=== PATIENT | male | born 1940 | race Caucasian/White ===

== ENCOUNTER → 2024-01-16 16:29 | Outpatient (REF) | payer MEDICARE, SELFPAY | LOC: ANHLAB 16:29 | PROVIDERS: PCP Family Medicine; Visit Provider Plastic Surgery | DX: C44.311 Basal cell carcinoma of skin of nose (principal) | CPT/HCPCS: 88305 ==

== ENCOUNTER 2024-03-14 20:56 | Inpatient (IN) | payer MEDICARE, SELFPAY ==
--- NOTE | ~2024-03-14 | XR_ITS ---
EXAM: XR hip BI 2V w AP pelvis DATE: 03/14/2024 22:48 HISTORY: pain status post fall . COMPARISON: None available. FINDINGS: Aortic endograft. Surgical clips over the bilateral inguinal canals. Decreased mineralizat ion. No fracture or dislocation. No lytic or blastic lesion. Mild bilateral hip osteoarthritis. Mild scattered pelvic enthesopathy. No erosion or periosteal change. Soft tissues within normal limits. IMPRESSION: No acute osseous finding in the pelvis or bilateral hips. Reviewed, dictated and finalized at location K.
--- NOTE | ~2024-03-14 | XR_ITS ---
EXAM: XR knee RT 3V, XR knee LT 3V DATE: 03/14/2024 22:48 HISTORY: pain status post fall . COMPARISON: None available. FINDINGS: Decreased mineralization. No fracture or dislocation. No lytic or blastic lesion. Joint sp aces are maintained. No erosion or periosteal change. Atherosclerotic vascular calcifications. Bilate ral anterior soft tissue swelling. Visualized, irregular appearing left patellar tendon. IMPRESSION: No acute osseous finding in the left or right knees. Irregularity of the left patellar te ndon, correlate for clinical findings of patellar tendon injury. Reviewed, dictated and finalized at location K. IMPRESSION: No acute osseous finding in the left or right knees. Irregularity o f the left patellar tendon, correlate for clinical findings of patellar tendon injury.
--- NOTE | ~2024-03-14 | CT_ITS ---
EXAMINATION: CT brain wo con DATE: 03/14/2024 22:55 INDICATION: head injury . TECHNIQUE: Computed tomography (CT) of the head was performed without intravenous contrast. The mA wa s adjusted according to patient size. Iterative reconstruction technique was employed. The dose-lengt h product was 681.00 mGy-cm. COMPARISON: None. FINDINGS: No acute intracranial hemorrhage or extra-axial fluid collection. No hydrocephalus, mass, or herniation. No acute ischemic infarct. Unremarkable dural venous sinus attenuation. No acute osseous abnormality. Small right posterior scalp swelling/contusion near the vertex. Opacification of the right frontal, right anterior and middle ethmoid cells, and bilateral maxillary sinuses with surrounding sclerosis. Mucosal thickening and aerated secretions in the right sphenoid s inus. Bilateral mastoid fluid. Mild mucosal thickening in the right frontal and ethmoid sinuses. Mild atrophy and chronic white matter change. Atherosclerotic intracranial calcification. IMPRESSION: No acute intracranial process. Acute on chronic sinusitis. Reviewed, dictated and finalized at location K.
--- NOTE | ~2024-03-14 | XR_ITS ---
XR abdomen/kub 1V DATE: 03/17/2024 05:38 INDICATION: Fecal impaction TECHNIQUE: Portable supine AP views COMPARISON: 03/16/2024 KUB 08/18/2007 CT thorax FINDINGS: Numerous coarse amorphous calcifications overlying the right upper quadrant are associated with a right upper pole cyst demonstrated on 08/18/2007 CT thorax examination. Endovascular stent of the abdominal aorta and common iliac arteries. The psoas shadows are intact. No visceromegaly is evident. There is a prominent amount of fecal material within the colon. No bowel obstruction is detected. IMPRESSION: Prominent amount of fecal material within the colon; no bowel obstruction Aortobiiliac endovascular stent Prominent calcifications associated with an upper pole right renal cyst noted on 08/18/2007 CT thorax Reviewed, dictated and finalized at Location A. Reviewed, dictated and finalized at location A. IMPRESSION: Prominent amount of fecal material within the colon; no bowel obstr uction Aortobiiliac endovascular stent Prominent calcifications associated with an upper pole right renal cyst noted o n 08/18/2007 CT thorax
--- NOTE | ~2024-03-14 | XR_ITS ---
EXAMINATION: XR chest 1V Exam Date/Time: 03/14/2024 22:32 CDT HISTORY: cough Comparison: 08/04/2007. RESULT: Lines, tubes, and devices: Partially visualized aortic endograft. Lungs and pleura: Linear and subsegmental airspace opacities in the left lung base. Mild left costop hrenic angle blunting Cardiomediastinal silhouette: Stable. Other: No acute osseous or upper abdominal finding. IMPRESSION: Subsegmental and linear left basilar atelectasis/consolidation. Possible small left pleural effusion. Reviewed, dictated and finalized at location K.
--- NOTE | ~2024-03-14 | XR_ITS ---
EXAMINATION: XR chest 1V portable DATE: 03/19/2024 10:50 INDICATION: Fluid overload. TECHNIQUE: A single frontal view of the chest was obtained on 2 radiographs. COMPARISON: Chest single view 03/14/2024 FINDINGS: There is no pneumonia, pleural effusion, or pneumothorax. The heart size is normal. IMPRESSION: 1. No acute cardiopulmonary disease. Reviewed, dictated and finalized at location A.
--- NOTE | ~2024-03-14 | CT_ITS ---
EXAMINATION: CT cervical spine wo con DATE: 03/14/2024 22:55 INDICATION: neck pain s/p fall TECHNIQUE: Computed tomography (CT) of the cervical spine was performed without intravenous contrast. Automated exposure control and iterative reconstruction technique were employed. The dose-length pro duct was 681.00 mGy-cm. COMPARISON: None. FINDINGS: Vertebral Body Alignment: Trace anterolisthesis at C3-4 and C7-T1, likely on a degenerative basis. Craniocervical and atlantoaxial alignment: Moderate degenerative change. Alignment intact. Osseous structures/fracture: No evidence of a lytic or blastic process in the visualized spine. No e vidence of acute fracture and cervical spine. Mild anterior wedge deformity at T1 Cervical soft tissues: The paraspinal soft tissues planes are maintained. Emphysematous change in the lungs. Degenerative changes: Degenerative changes, without severe neural foraminal or central canal narrowin g. IMPRESSION: No acute fracture or traumatic malalignment in the cervical spine. Mild anterior wedge deformity at T1, likely chronic unless accompanied by acute pain/tenderness. Reviewed, dictated and finalized at location K.
--- NOTE | ~2024-03-14 | US_ITS ---
EXAMINATION: US renal BI DATE: 03/15/2024 16:52 INDICATION: Acute kidney injury. Urinary retention. TECHNIQUE: Multiple ultrasound grayscale images of the kidneys were obtained. COMPARISON: None. FINDINGS: The right kidney measures 9.3 x 6.1 x 4.9 cm. The left kidney measures 11.6 x 6.1 x 6.3 cm. The kidne ys demonstrate normal parenchymal echogenicity. There is a 2.2 cm cyst in left kidney. There is no hy dronephrosis. The bladder is decompressed by a Jackson catheter. IMPRESSION: 1. Normal kidney sizes. No hydronephrosis. Reviewed, dictated and finalized at location A.
--- NOTE | ~2024-03-14 | CT_ITS ---
EXAMINATION: CT pelvis wo con DATE: 03/14/2024 23:48 INDICATION: Hip pain, negative x-ray. TECHNIQUE: Computed tomography (CT) of the pelvis was performed without intravenous contrast. Automat ed exposure control and iterative reconstruction technique were employed. The dose-length product was 763.88 mGy-cm. COMPARISON: X-ray bilateral hip and pelvis, same date FINDINGS: Aortoiliac endograft. Atherosclerotic arterial calcifications. Diverticulosis. Focal narrow ing in the mid sigmoid with surrounding wall thickening, no significant surrounding inflammatory wilson ge. The rectum is dilated to 6.5 cm by formed stool, with adjacent colonic wall thickening. Masslike soft tissue density at the distal rectum/anus. Distended urinary bladder with mild wall thickening. P rostatomegaly with calcification. Severe degenerative disc disease in the lower lumbar spine with mod erate bilateral neural foraminal narrowing at L4-5 and L5-S1 and moderate central canal narrowing at L4-5. No acute fracture or dislocation. IMPRESSION: No acute osseous finding in the pelvis or bilateral hips. Focal narrowing and wall thickening in the mid sigmoid colon, no surrounding inflammatory change to s uggest active diverticulitis. Possible fecal impaction with adjacent wall thickening as can be seen with early stercoral colitis. Possible anorectal mass. Consider referral for endoscopy to evaluate the anorectal findings and the mid sigmoid narrowing. Reviewed, dictated and finalized at location K. IMPRESSION: No acute osseous finding in the pelvis or bilateral hips. Focal narrowing and wall thickening in the mid sigmoid colon, no surrounding in flammatory change to suggest active diverticulitis. Possible fecal impaction with adjacent wall thickening as can be seen with benjie y stercoral colitis. Possible anorectal mass. Consider referral for endoscopy to evaluate the anorectal findings and the mid sigmoid narrowing.
--- NOTE | ~2024-03-14 | XR_ITS ---
XR abdomen/kub 1V 03/16/2024 08:41 Indication: impaction Procedure: KUB Comparison: CT pelvis dated 03/14/2024 Findings: There is an endovascular stents in the aorta and iliac arteries. There are coarse amorphous calcifications of the right upper abdomen, of uncertain etiology. Nonobstructive bowel gas pattern. Moderate colonic fecal loading. Impression: 1: Nonobstructive bowel gas pattern with moderate colonic fecal loading. Reviewed, dictated and finalized at location B. Impression: 1: Nonobstructive bowel gas pattern with moderate colonic fecal loading.
--- NOTE | ~2024-03-14 | XR_ITS ---
EXAM: XR elbow LT min 3V DATE: 03/14/2024 22:48 HISTORY: pain . COMPARISON: None available. FINDINGS: Normal mineralization. No fracture or dislocation. No lytic or blastic lesion. Mild degene rative change at the elbow joint. Epicondylar enthesopathy. No erosion or periosteal change. Anterior displacement of the anterior fat pad. IMPRESSION: Small elbow joint effusion which can occur with occult radial head fractures in a patient of this age. Reviewed, dictated and finalized at location K.
[2024-03-14 20:56] VITALS: BP 111/71; PULSE 86; RESP 20; TEMP 36.2; O2SAT 100
[2024-03-14 21:13] VITALS: BP 111/71; PULSE 87; RESP 20; TEMP 36.2; O2SAT 100
--- NOTE | 2024-03-14 21:15 | ECG_ITS ---
[facility] [address] Test Date: 2024-03-14 Pat Name: John Gaona Department: Room: Gender: M Plc Engineer: Jeremiah : 1940 Requested By: Demetrio Lester Order Number: [id number] Joelle MD: Carlos Alberto Briggs D.O. Measurements Intervals [place] Rate: 83 P: 89 PA: 188 QRS: -67 QRSD: 117 T: 52 QT: 391 QTc: 461 Interpretive Statements SINUS RHYTHM RIGHT BUNDLE BRANCH BLOCK LEFT ANTERIOR FASCICULAR BLOCK BASELINE ARTIFACT- I, II, III, AVR, AVL, V1-V2 ABNORMAL ECG No previous ECG available for comparison Electronically Signed On 03-15-2024 09:25:29 CDT by Carlos Alberto Briggs D.O.
[2024-03-14 22:31] LABS: Basophils Percent Auto 0.3 % (0.2-1.2); Eosinophils Percent Auto 0.1 % (0-4.4); Hematocrit 29.2 % (42.0-52.0); Hemoglobin 10.3 g/dL (14.0-18.0); Immature Granulocyte Absolute 0.06 K/mm3 (0.00-0.031); Immature Granulocyte Percent A 0.6 % (0-0.5); Lymphocytes Absolute Auto 1.23 K/mm3 (0.9-3.2); Lymphocytes Percent Auto 12.7 % (18.3-44.2); Mean Corpuscular HGB Conc 35.3 g/dl (32-36); Mean Corpuscular Hemoglobin 32.6 pg (26-34); Mean Corpuscular Volume 92.4 fl (80-100); Monocytes Absolute Auto 0.8 K/mm3 (0.1-0.6); Monocytes Percent Auto 8.2 % (2.6-8.5); Neutrophils Absolute Auto 7.5 K/mm3 (1.3-6.7); Neutrophils Percent Auto 78.1 % (45.5-73.1); Platelet Count Result 253 k/mm3 (150-375); Red Blood Count 3.16 M/mm3 (4.6-6.20); Red Cell Distribution Width 13.1 % (11.5-14.5); White Blood Count 9.7 K/mm3 (4.5-10.0)
[2024-03-14 22:41] LABS: Lactic Acid Reflex 1.6 mmol/L (0.7-2.0)
[2024-03-14 22:42] LABS: Prothrombin Time 13.6 Seconds (11.1-14.7)
[2024-03-14 22:43] LABS: Partial Thromboplastin Time 32.4 Seconds (22.3-36.8)
[2024-03-14 22:45] LABS: Alanine Aminotransferase 79 U/L (6-50); Alkaline Phosphatase 60 U/L (38-126); Aspartate Amino Transferase 270 U/L (17-59); Bilirubin,Total 0.7 mg/dL (0.2-1.3); Blood Urea Nitrogen 67 mg/dL (9-20); Calcium 8.9 mg/dL (8.4-10.2); Carbon Dioxide > 40 mmol/L (22-30); Chloride 79 mmol/L (98-107); Estimated CRCL calculation 39 ml/min; Estimated Glomerular Filt Rate 49; Glucose 168 mg/dL (65-110); Sodium 126 mmol/L (137-145)
[2024-03-14 22:49] LABS: Potassium 2.6 mmol/L (3.4-5.0)
[2024-03-14 23:10] VITALS: BP 116/78; PULSE 75; RESP 18; O2SAT 100
[2024-03-14] MEDS: KCL 20 MEQ/SW 100 ML 100 ML 50 MEQ IVPB (23:25)
[2024-03-14] MEDS: SODIUM CHLORIDE 0.9% IV 500 ML 999 ML (23:25)
--- NOTE | 2024-03-14 23:49 | ED.GENADULT ---
HPI - General Adult General Chief complaint: Fall Stated complaint: BILATERAL HIP PAIN, NECK PAIN S/P FALL Time Seen by Provider: 03/14/24 21:02 History of Present Illness HPI narrative: patient is a 83-year-old gentleman who presents emergency department with chief complaint of bilateral hip pain patient had a ground level fall after tripping over his cane. Patient reports that he was unable to get up afterwards and bear weight patient reports no loss of consciousness reports that he feels very weak patient reports that he did hit his head and has had recent falls Related Data Home Medications Medication Instructions Recorded Confirmed aspirin 81 mg tablet,delayed 81 mg PO DAILY 05/02/23 01/16/24 release phenylephrine HCl 1 % nasal spray 1 spray intranasal Q6H PRN 05/02/23 01/16/24 (Zaki-Synephrine (phenylephrine)) Allergies Allergy/AdvReac Type Severity Reaction Status Date / Time No Known Allergies Allergy Verified 01/16/24 16:05 Review of Systems Review of Systems: A 10 system review of systems was completed on the patient and is negative except for what is stated in the HPI. Nursing and ancillary documentation was reviewed. [facility] Past Medical History Medical History Abdominal aortic aneurysm BMI 35.0-35.9,adult BMI 36.0-36.9,adult BPH (benign prostatic hyperplasia) Changing skin lesion COPD (chronic obstructive pulmonary disease) Diabetes type 2, controlled Diabetes type 2, uncontrolled Edema Hernia Hypertension Hyponatremia Osteoarthritis PVD (peripheral vascular disease) Surgical History Surgical History H/O ventral hernia repair S/P AAA repair Stented coronary artery Family History Family History Father Heart disease Diabetes mellitus Mother Dementia Sibling No problems noted. Social History Social History Smoking packs per day: 1.5 Smoking cigarettes per day: 30.0 Years smoked: 55 Smoking pack-years: 82.50 Smoking status: Current every day smoker Tobacco type: cigarettes Second hand tobacco smoke exposure: No Alcohol intake: current Substance use: never Substance use type: does not use Do You Feel Safe in your Home?: Yes Lack of Transportation: No Lack of Food: Never True Current Housing: I Have Housing Concerned About Future Housing: No Difficulty Paying Gas/Electric Bills: No Difficulty Paying for Meds: No Currently Unemployed: No Education: Bachelor's Degree Difficulty w/ Childcare or Family Care: No Living arrangements: alone Occupation/Education: retired 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 Gender identity (if verbalized by the patient): Male Exam Narrative: GENERAL: Well-appearing, well-nourished, and in no acute distress. HEAD: Normocephalic, atraumatic. EYES: PERRLA and EOMI. ENT: Nares clear, no rhinorrhea or epistaxis. Mucous membranes moist. NECK: Supple. mild tenderness to palpation cervical collar in place CHEST: Clear to auscultation. No respiratory distress. HEART: Regular rate and rhythm. No murmur heard. Normal peripheral pulses. ABDOMEN: Soft, nontender, nondistended, normal active bowel sounds. EXTREMITIES: Normal range of motion. No edema. tenderness to palpation in bilateral hips, right knee there are abrasions present to bilateral knees there is mild tenderness to palpation of the left elbow SKIN: Warm, dry, no rash. NEURO: No focal deficits. Alert and oriented x3. PSYCH: Normal mood and affect. Course Vital Signs Vital signs: Vital Signs Temperature 36.2 C L 03/14/24 20:56 Pulse Rate 86 03/14/24 20:56 Respiratory Rate 20 03/14/24 20:56 Blood Pressure 111/
[2024-03-15] VITALS (17 sets, daily range): BP systolic 88–105; BP diastolic 50–75; PULSE 70–78; RESP 17–18; TEMP 36.1–36.6; O2SAT 98–100; BMI 31.8
[2024-03-15 01:26] LABS: Appearance Urine Clear (Clear); Bacteria Urine None Seen /hpf; Bilirubin Urine Negative (Negative); Blood Urine 2+ (Negative); Color Urine Yellow (Yellow); Glucose Urine UA Negative (Negative); Ketones Urine Negative (Negative); Leukocyte Esterase Ur Negative LEU/UL (Negative); Need Manual Microscopic Reviewed; Nitrate Urine Negative (Negative); Protein Urine Trace mg/dL (Negative); RBC Urine 0-2 /hpf (0-2); Specific Grav Ur 1.014 (1.001-1.035); Squamous Epithelial Cell Urine Occasional /hpf (Few); Urobilinogen Urine 0.2 mg/dL (<2.0); WBC Urine 0-5 /hpf (0-3); pH Urine 5.5 (5.0-9.0)
[2024-03-15 01:28] LABS: Add Urine Microscopic? YES
--- NOTE | 2024-03-15 01:53 | PC.NURSE ---
Attempted to walk pt per EDP vorb. Pt made it about 4 steps before this RN and 3 techs had to carry pt back to bed. Pt stated My legs are not going to hold me up.
--- NOTE | 2024-03-15 02:33 | PM.IMHP ---
H&P: HPI History of Present Illness Date/Time: 03/15/24 02:33 Chief Complaint: fall Narrative: This is an 83-year-old male with past medical history significant for COPD/ emphysema, chronic hypoxic respiratory failure on supplemental oxygen by nasal cannula at home, type diabetes mellitus, hypertension, peripheral vascular disease. patient was brought to the emergency room after his son found him down, no loss of consciousness, patient has been having recurrent falls, poor appetite, generalized weakness. Preliminary workup here was significant for sodium 126, chloride 79, potassium 2.4, BUN 67, creatinine 1.4. Patient is been admitted for further evaluation management and treatment. EXAMINATION: CT brain wo con DATE: 03/14/2024 22:55 INDICATION: head injury . TECHNIQUE: Computed tomography (CT) of the head was performed without intravenous contrast. The mA was adjusted according to patient size. Iterative reconstruction technique was employed. The dose-length product was 681.00 mGy-cm. COMPARISON: None. FINDINGS: No acute intracranial hemorrhage or extra-axial fluid collection. No hydrocephalus, mass, or herniation. No acute ischemic infarct. Unremarkable dural venous sinus attenuation. No acute osseous abnormality. Small right posterior scalp swelling/contusion near the vertex. Opacification of the right frontal, right anterior and middle ethmoid cells, and bilateral maxillary sinuses with surrounding sclerosis. Mucosal thickening and aerated secretions in the right sphenoid sinus. Bilateral mastoid fluid. Mild mucosal thickening in the right frontal and ethmoid sinuses. Mild atrophy and chronic white matter change. Atherosclerotic intracranial calcification. IMPRESSION:? No acute intracranial process. Acute on chronic sinusitis. EXAMINATION: CT pelvis wo con DATE: 03/14/2024 23:48 INDICATION: Hip pain, negative x-ray. TECHNIQUE: Computed tomography (CT) of the pelvis was performed without intravenous contrast. Automated exposure control and iterative reconstruction technique were employed. The dose-length product was 763.88 mGy-cm. COMPARISON: X-ray bilateral hip and pelvis, same date FINDINGS: Aortoiliac endograft. Atherosclerotic arterial calcifications. Diverticulosis. Focal narrowing in the mid sigmoid with surrounding wall thickening, no significant surrounding inflammatory change. The rectum is dilated to 6.5 cm by formed stool, with adjacent colonic wall thickening. Masslike soft tissue density at the distal rectum/anus. Distended urinary bladder with mild wall thickening. Prostatomegaly with calcification. Severe degenerative disc disease in the lower lumbar spine with moderate bilateral neural foraminal narrowing at L4-5 and L5-S1 and moderate central canal narrowing at L4-5. No acute fracture or dislocation. IMPRESSION: No acute osseous finding in the pelvis or bilateral hips. Focal narrowing and wall thickening in the mid sigmoid colon, no surrounding inflammatory change to suggest active diverticulitis. Possible fecal impaction with adjacent wall thickening as can be seen with early stercoral colitis. Possible anorectal mass. Consider referral for endoscopy to evaluate the anorectal findings and the mid sigmoid narrowing. EXAMINATION:? XR chest 1V Exam Date/Time:? 03/14/2024 22:32 CDT HISTORY: cough ? Comparison:? 08/04/2007. RESULT: Lines, tubes, and devices:? Partially visualized aortic endograft. Lungs and pleura:? Linear and subsegmental airspace opacities in the left lung base. Mild left costophrenic angle blunting Cardiomediastinal silhouette:? Stable. Other:? No acute osseous or upper abdominal finding. ? IMPRESSION: Subsegmental and linear left basilar atelectasis/consolidation. Possible small left pleural effusion. Review of Systems Review of Systems: fall Constitutional: Constitutional: Reports poor appetite and Reports weakness Eyes: Eyes:
--- NOTE | 2024-03-15 02:55 | ADMGEN ---
This patient, John Gaona, was admitted to Medical Room 241-. Patient/family oriented to hospital policies and general routines including ID bracelet, bed and alarms, visiting hours, pain management, procedures, bathroom and other care routines, personal items, smoking policy, room service/diet, and visiting hours. Information on how to activate the Rapid Response Team has been discussed. Patient/Family are encouraged to report perceived risks to care and to ask questions if they do not understand what they are told or what they should do.
[2024-03-15] MEDS: KCL 20 MEQ/SW 100 ML 100 ML 50 MEQ IVPB (03:23)
[2024-03-15] MEDS: SODIUM CHLORIDE 0.9% IV 1,000 ML 125 ML IV CONT ×3 (03:23→20:59)
--- NOTE | 2024-03-15 07:58 | P.PNIM_ITS ---
Progress Note: A&P Assessment and Plan (1) Acute hyponatremia: Code(s): E87.1 - Hypo-osmolality and hyponatremia Status: Acute Assessment and Plan: 03/15/24: * Likely secondary to use of diuretics, patient is on Lasix and HCTZ * Initial Na+ 126, now 125 * Continue NS at 125ml/hr * Recheck sodium at 1600 today * Check urine sodium, urine osmolarity, serum osmolarity, and cortisol level * Continue to hold Lasix and HCTZ * Continue cardiac monitoring (2) Acute kidney injury: Code(s): N17.9 - Acute kidney failure, unspecified Status: Acute Assessment and Plan: 03/15/24: * likely secondary to dehydration from overuse of diuretics. * Creatinine 1.4 on admission, currently 1.4 * Baseline creatinine appears to be around 0.92-1.07 * Continue to hold Lasix and HCTZ (3) Urinary retention: Code(s): R33.9 - Retention of urine, unspecified Status: Acute Assessment and Plan: 03/15/24: * Bladder scan showing greater than 490 mL of urine in the bladder * Patient has history of BPH on terazosin * Jackson catheter placed * Urology consulted (4) BPH (benign prostatic hyperplasia): Qualifiers: Lower urinary tract symptom presence: symptoms absent Qualified Code(s): N40.0 - Benign prostatic hyperplasia without lower urinary tract symptoms Code(s): N40.0 - Benign prostatic hyperplasia without lower urinary tract symptoms Status: Acute Assessment and Plan: 03/15/24: * Continue Terazosin (5) Acute hypokalemia: Code(s): E87.6 - Hypokalemia Status: Acute Assessment and Plan: 03/15/24: * Initial potassium 2.6 * Patient was given 40 meq of KCL on admission * Recheck of potassium today 2.9, will give additional 60 meq today * Will recheck potassium at 1600 today * Continue to trend labs daily * Continue cardiac monitoring (6) Elevated liver enzymes: Code(s): R74.8 - Abnormal levels of other serum enzymes Status: Acute Assessment and Plan: 03/15/24: * suspect shocked liver due to pre-renal azotemia due to overuse of diuretics * AST 270, ALT 79 on admission * Total bili normal * Today liver enzymes are trending down, AST 221, ALT 82 * Continue to trend. (7) Generalized weakness: Code(s): R53.1 - Weakness Status: Acute Assessment and Plan: 03/15/24: * Walks with cane, sustained a fall yesterday * Continue fall precautions * PT and OT ordered * Head CT negative for any acute intracranial process * C-spine CT negative for any acute fracture or malalignment * Left elbow x-ray shown small joint effusion * Bilateral hip and pelvis x-ray was negative for any acute findings * Bilateral knee x-ray shown irregularity of the left patellar tendon (8) COPD (chronic obstructive pulmonary disease): Qualifiers: COPD type: unspecified COPD Qualified Code(s): J44.9 - Chronic obstructive pulmonary disease, unspecified Code(s): J44.9 - Chronic obstructive pulmonary disease, unspecified Status: Chronic Assessment and Plan: 03/15/24: * CXR- shown subsegmental and linear left basilar atelectasis/consolidation, possible small left pleural effusion * Continue Albuterol inhaler PRN for SOB/wheezing * Currently on 2L NC which is patient's baseline O2 needs (9) Diabetes type 2, uncontrolled: Qualifiers: Glycemic state: with hyperglycemia Qualified Code(s): E11.65 - Type 2 diabetes mellitus with hyperglycemia Status: Chronic Assessment and Plan: 03/15/24: * Blood s
--- NOTE | 2024-03-15 07:58 | PM.IMPN ---
Progress Note: A&P Assessment and Plan (1) Acute hyponatremia: Code(s): E87.1 - Hypo-osmolality and hyponatremia Status: Acute Assessment and Plan: 03/15/24: Likely secondary to use of diuretics, patient is on Lasix and HCTZ Initial Na+ 126, now 125 Continue NS at 125ml/hr Recheck sodium at 1600 today Check urine sodium, urine osmolarity, serum osmolarity, and cortisol level Continue to hold Lasix and HCTZ Continue cardiac monitoring (2) Acute kidney injury: Code(s): N17.9 - Acute kidney failure, unspecified Status: Acute Assessment and Plan: 03/15/24: likely secondary to dehydration from overuse of diuretics. Creatinine 1.4 on admission, currently 1.4 Baseline creatinine appears to be around 0.92-1.07 Continue to hold Lasix and HCTZ (3) Urinary retention: Code(s): R33.9 - Retention of urine, unspecified Status: Acute Assessment and Plan: 03/15/24: Bladder scan showing greater than 490 mL of urine in the bladder Patient has history of BPH on terazosin Jackson catheter placed Urology consulted (4) BPH (benign prostatic hyperplasia): Qualifiers: Lower urinary tract symptom presence: symptoms absent Qualified Code(s): N40.0 - Benign prostatic hyperplasia without lower urinary tract symptoms Code(s): N40.0 - Benign prostatic hyperplasia without lower urinary tract symptoms Status: Acute Assessment and Plan: 03/15/24: Continue Terazosin (5) Acute hypokalemia: Code(s): E87.6 - Hypokalemia Status: Acute Assessment and Plan: 03/15/24: Initial potassium 2.6 Patient was given 40 meq of KCL on admission Recheck of potassium today 2.9, will give additional 60 meq today Will recheck potassium at 1600 today Continue to trend labs daily Continue cardiac monitoring (6) Elevated liver enzymes: Code(s): R74.8 - Abnormal levels of other serum enzymes Status: Acute Assessment and Plan: 03/15/24: suspect shocked liver due to pre-renal azotemia due to overuse of diuretics AST 270, ALT 79 on admission Total bili normal Today liver enzymes are trending down, AST 221, ALT 82 Continue to trend. (7) Generalized weakness: Code(s): R53.1 - Weakness Status: Acute Assessment and Plan: 03/15/24: Walks with cane, sustained a fall yesterday Continue fall precautions PT and OT ordered Head CT negative for any acute intracranial process C-spine CT negative for any acute fracture or malalignment Left elbow x-ray shown small joint effusion Bilateral hip and pelvis x-ray was negative for any acute findings Bilateral knee x-ray shown irregularity of the left patellar tendon (8) COPD (chronic obstructive pulmonary disease): Qualifiers: COPD type: unspecified COPD Qualified Code(s): J44.9 - Chronic obstructive pulmonary disease, unspecified Code(s): J44.9 - Chronic obstructive pulmonary disease, unspecified Status: Chronic Assessment and Plan: 03/15/24: CXR- shown subsegmental and linear left basilar atelectasis/consolidation, possible small left pleural effusion Continue Albuterol inhaler PRN for SOB/wheezing Currently on 2L NC which is patient's baseline O2 needs (9) Diabetes type 2, uncontrolled: Qualifiers: Glycemic state: with hyperglycemia Qualified Code(s): E11.65 - Type 2 diabetes mellitus with hyperglycemia Status: Chronic Assessment and Plan: 03/15/24: Blood sugars ranging 168-180 Last Hgb A1C was 7.2 on 12/19/23 Accu checks AC/HS hypoglycemic protocol in place low dose SSI ordered hold metformin Diabetic diet ordered Time Spent With Patient Time with patient: Greater than 35 minutes Subjective Date/time seen: 03/15/24 07:58 Interval history: This is an 83 year old male who presented to the ER with complaints of bilateral hip and neck pain after sustaining a fall after tripping over his c
[2024-03-15 08:08] LABS: Glucose Point of Care 180 mg/dl (65-105)
[2024-03-15] MEDS: FLUTICASONE/UMECLIDIN/VILANTER 100-62.5-25 MCG ELLIPTA 1 PUFF INHALATION (08:08)
[2024-03-15 08:35] LABS: Basophils Percent Auto 0.5 % (0.2-1.2); Eosinophils Absolute Auto 0.1 K/mm3 (0-0.3); Eosinophils Percent Auto 0.6 % (0-4.4); Hematocrit 28.9 % (42.0-52.0); Immature Granulocyte Absolute 0.06 K/mm3 (0.00-0.031); Immature Granulocyte Percent A 0.7 % (0-0.5); Lymphocytes Absolute Auto 1.16 K/mm3 (0.9-3.2); Lymphocytes Percent Auto 14.3 % (18.3-44.2); Mean Corpuscular HGB Conc 34.6 g/dl (32-36); Mean Corpuscular Hemoglobin 32.9 pg (26-34); Mean Corpuscular Volume 95.1 fl (80-100); Mean Platelet Volume 8.8 fl (7.4-10.4); Monocytes Absolute Auto 0.7 K/mm3 (0.1-0.6); Monocytes Percent Auto 8.1 % (2.6-8.5); Neutrophils Absolute Auto 6.1 K/mm3 (1.3-6.7); Neutrophils Percent Auto 75.8 % (45.5-73.1); Platelet Count Result 227 k/mm3 (150-375); Red Blood Count 3.04 M/mm3 (4.6-6.20); Red Cell Distribution Width 13.5 % (11.5-14.5); White Blood Count 8.1 K/mm3 (4.5-10.0)
[2024-03-15] MEDS: TERAZOSIN HCL 5 MG CAPSULE PO ×2 (08:47→17:09)
[2024-03-15] MEDS: ENOXAPARIN 40 MG/0.4 ML SYRINGE SUB-Q (08:47)
[2024-03-15] MEDS: ASPIRIN 81 MG ENTERIC TABLET PO (08:47)
[2024-03-15 08:51] LABS: Alanine Aminotransferase 82 U/L (6-50); Albumin Level 3.7 g/dL (3.5-5.1); Alkaline Phosphatase 54 U/L (38-126); Aspartate Amino Transferase 221 U/L (17-59); Bilirubin,Total 0.6 mg/dL (0.2-1.3); Blood Urea Nitrogen 64 mg/dL (9-20); Calcium 8.8 mg/dL (8.4-10.2); Carbon Dioxide > 40 mmol/L (22-30); Chloride 83 mmol/L (98-107); Estimated CRCL calculation 39 ml/min; Estimated Glomerular Filt Rate 49; Glucose 170 mg/dL (65-110); Magnesium 2.4 mg/dL (1.6-2.3); Potassium 2.9 mmol/L (3.4-5.0); Sodium 125 mmol/L (137-145)
[2024-03-15 08:55] LABS: Cholesterol 109 mg/dL (0-200); HDL Direct 30 mg/dL; Triglycerides 143 mg/dL (<150)
[2024-03-15] MEDS: IPRATROPIUM NASAL SPRAY 0.06% 15 ML BOTTLE 2 SPRAY NASAL ×4 (09:04→20:55)
[2024-03-15] MEDS: POTASSIUM CHLORIDE 20 MEQ ER TABLET 40 MEQ PO (09:05)
[2024-03-15 09:06] LABS: LDL Cholesterol Direct 55 mg/dL
[2024-03-15] MEDS: ACETAMINOPHEN 325 MG TABLET 650 MG PO (11:23)
[2024-03-15] MEDS: NICOTINE (*PBKC) 21 MG PATCH 1 PATCH TRANSDERM (11:23)
[2024-03-15 12:03] LABS: Glucose Point of Care 203 mg/dl (65-105)
[2024-03-15] MEDS: INSULIN ASPART (*BKC) 100 UNITS/ML SUB-Q ×3 (12:53→20:52)
[2024-03-15] MEDS: POTASSIUM CHLORIDE 20 MEQ PACKET (FOR LIQUID) PO (13:17)
--- NOTE | 2024-03-15 15:18 | WPDURCON ---
Assessment and Plan Assessment and plan (1) Urinary retention: Code(s): R33.9 - Retention of urine, unspecified Status: Acute Assessment and Plan: Pelvic CT shows distended bladder and bladder scan demonstrated >490 cc. This is likely due to fecal impaction. Jackson catheter placed on 03/15/2024 and will be continued at this time. Continue home terazosin. Would recommend void trial following improvement/resolution of fecal impaction. (2) Fecal impaction: Code(s): K56.41 - Fecal impaction Status: Acute Assessment and Plan: Noted on pelvis CT. Also noted a masslike soft tissue density at the distal rectum/anus. Consider GI evaluation in this setting. Fecal impaction is contributing to urinary retention. (3) BPH (benign prostatic hyperplasia): Qualifiers: Lower urinary tract symptom presence: symptoms absent Qualified Code(s): N40.0 - Benign prostatic hyperplasia without lower urinary tract symptoms Code(s): N40.0 - Benign prostatic hyperplasia without lower urinary tract symptoms Status: Chronic Assessment and Plan: Chronic issue maintained on terazosin for many years (4) Acute kidney injury: Code(s): N17.9 - Acute kidney failure, unspecified Status: Acute Assessment and Plan: Creatinine elevated to 1.4. Likely multifactorial, in part due to urinary retention. Will proceed with renal ultrasound to ensure no hydronephrosis or obstruction. Urology Consult Note HPI Date Seen: 03/15/24 Requesting Physician: Chante Birch APRN Primary Care Provider: Uday Norwood MD Consult Narrative Narrative: John Gaona is a 83 year old male with a history of BPH on terazosin who is currently admitted for hyponatremia and acute kidney injury and is being seen in consultation for evaluation of urinary retention. He presented to the emergency department on 03/14/2024 after suffering a ground level fall at home. He presented with complaints of bilateral hip pain. On presentation, his vital signs were stable, he was afebrile, white blood cell count 9.7, BMP with significant electrolyte derangement, creatinine of 1.4, UA with negative leukocytes and nitrites, 2+ blood. He had a CT of his pelvis on presentation which demonstrated a distended bladder with bladder wall thickening as well as fecal impaction. A bladder scan was performed that showed >490 cc of urine in the bladder. A Jackson catheter was placed. At the time of my evaluation, the patient is asleep, resting comfortably. His son is present at the bedside and reports that the patient has been noting difficulty with urination for about 2 weeks, stating it was harder to go and his stream was weak. He did not complain of any dysuria or hematuria. He was complaining of suprapubic pressure and tenderness but this improved following Jackson catheter placement. States that the patient is usually in pretty good health and lives independently. He has been compliant with his terazosin which he has been on for many years, managed by his PCP. He is not established with a urologist. His Jackson catheter is draining clear yellow urine. His creatinine today remains stable at 1.4, which is slightly elevated from his baseline of 1.07. Review of Systems Review of Systems: ROS unobtainable: Yes unobtainable due to mental status PMFSH Past Medical History Medical History Abdominal aortic aneurysm BMI 35.0-35.9,adult BMI 36.0-36.9,adult BPH (benign prostatic hyperplasia) Changing skin lesion COPD (chronic obstructive pulmonary disease) Diabetes type 2, controlled Diabetes type 2, uncontrolled Edema Hernia Hypertension Hyponatremia Osteoarthritis PVD (peripheral vascular disease) Surgical History Surgical History H/O ventral hernia repair S/P AAA repair Stented coron
[2024-03-15 16:57] LABS: Glucose Point of Care 220 mg/dl (65-105)
[2024-03-15 17:36] LABS: Potassium 3.2 mmol/L (3.4-5.0); Sodium 127 mmol/L (137-145)
[2024-03-15 21:08] LABS: Glucose Point of Care 247 mg/dl (65-105)
[2024-03-16] VITALS (12 sets, daily range): BP systolic 95–104; BP diastolic 50–55; PULSE 69–82; RESP 16–18; TEMP 36.6–36.7; O2SAT 95–100; BMI 10.0
[2024-03-16] MEDS: ACETAMINOPHEN 325 MG TABLET 650 MG PO (01:59)
[2024-03-16 03:33] LABS: Sodium Urine Random 15 meq/L
[2024-03-16 05:19] LABS: Basophils Percent Auto 0.4 % (0.2-1.2); Eosinophils Percent Auto 0.5 % (0-4.4); Hematocrit 25.1 % (42.0-52.0); Hemoglobin 8.4 g/dL (14.0-18.0); Immature Granulocyte Absolute 0.03 K/mm3 (0.00-0.031); Immature Granulocyte Percent A 0.4 % (0-0.5); Lymphocytes Percent Auto 17.4 % (18.3-44.2); Mean Corpuscular HGB Conc 33.5 g/dl (32-36); Mean Corpuscular Hemoglobin 32.3 pg (26-34); Mean Corpuscular Volume 96.5 fl (80-100); Mean Platelet Volume 9.2 fl (7.4-10.4); Monocytes Absolute Auto 0.6 K/mm3 (0.1-0.6); Monocytes Percent Auto 8.3 % (2.6-8.5); Neutrophils Absolute Auto 5.5 K/mm3 (1.3-6.7); Platelet Count Result 222 k/mm3 (150-375); Red Cell Distribution Width 13.7 % (11.5-14.5); White Blood Count 7.5 K/mm3 (4.5-10.0)
[2024-03-16] MEDS: SODIUM CHLORIDE 0.9% IV 1,000 ML 125 ML IV CONT (05:47)
[2024-03-16 06:06] LABS: Alanine Aminotransferase 58 U/L (6-50); Albumin Level 3.1 g/dL (3.5-5.1); Alkaline Phosphatase 51 U/L (38-126); Anion Gap 3 mmol/L (4-12); Aspartate Amino Transferase 99 U/L (17-59); Bilirubin,Total 0.5 mg/dL (0.2-1.3); Blood Urea Nitrogen 37 mg/dL (9-20); Calcium 8.2 mg/dL (8.4-10.2); Carbon Dioxide 34 mmol/L (22-30); Chloride 91 mmol/L (98-107); Estimated CRCL calculation 49 ml/min; Estimated Glomerular Filt Rate > 60; Glucose 144 mg/dL (65-110); Magnesium 2.1 mg/dL (1.6-2.3); Potassium 2.7 mmol/L (3.4-5.0); Sodium 128 mmol/L (137-145)
[2024-03-16] MEDS: POTASSIUM CHLORIDE 20 MEQ ER TABLET 40 MEQ PO ×2 (06:32→09:07)
--- NOTE | 2024-03-16 08:06 | PCOTNOTE ---
The patient treatment was not able to be completed. Patient working with PT and then has an X-ray. Will plan to continue treatment per plan of care.
[2024-03-16 08:20] LABS: Glucose Point of Care 153 mg/dl (65-105)
[2024-03-16] MEDS: FLUTICASONE/UMECLIDIN/VILANTER 100-62.5-25 MCG ELLIPTA 1 PUFF INHALATION (08:24)
[2024-03-16] MEDS: ENOXAPARIN 40 MG/0.4 ML SYRINGE SUB-Q (09:07)
[2024-03-16] MEDS: ASPIRIN 81 MG ENTERIC TABLET PO (09:07)
[2024-03-16] MEDS: IPRATROPIUM NASAL SPRAY 0.06% 15 ML BOTTLE 2 SPRAY NASAL ×4 (09:07→20:46)
[2024-03-16] MEDS: NICOTINE (*PBKC) 21 MG PATCH 1 PATCH TRANSDERM (09:08)
[2024-03-16] MEDS: LACTULOSE 20 GM/30 ML UDC PO (09:08)
--- NOTE | 2024-03-16 09:27 | WPDUROPN2 ---
Progress Note: A&P Assessment and Plan (1) Urinary retention: Code(s): R33.9 - Retention of urine, unspecified Status: Acute Assessment and Plan: Pelvic CT shows distended bladder and bladder scan demonstrated >490 cc. This is likely due to fecal impaction. Jackson catheter placed on 03/15/2024 and will be continued at this time. Continue home terazosin. Would recommend void trial following improvement/resolution of fecal impaction. Will arrange outpatient follow-up to ensure he is emptying. (2) Fecal impaction: Code(s): K56.41 - Fecal impaction Status: Acute Assessment and Plan: Noted on pelvis CT. Also noted a masslike soft tissue density at the distal rectum/anus. Consider GI evaluation in this setting. Fecal impaction is contributing to urinary retention. (3) BPH (benign prostatic hyperplasia): Qualifiers: Lower urinary tract symptom presence: symptoms absent Qualified Code(s): N40.0 - Benign prostatic hyperplasia without lower urinary tract symptoms Code(s): N40.0 - Benign prostatic hyperplasia without lower urinary tract symptoms Status: Chronic Assessment and Plan: Chronic issue maintained on terazosin for many years. Recommend outpatient follow-up following hospital discharge for continue management (4) Acute kidney injury: Code(s): N17.9 - Acute kidney failure, unspecified Status: Acute Assessment and Plan: Creatinine elevated to 1.4 on admission. Likely multifactorial, in part due to urinary retention. MAYELA reviewed with no hydro. Creatinine improved to 1.1 today Subjective Subjective Date/Time Seen: 03/16/24 09:27 Interval history: Year-old is feeling well today. Does complain of some lower abdominal pressure but otherwise reports no concerns. He does state today that for the past 2 weeks he has noticed weak, dribbling stream, hesitancy, straining to void. Prior to this, he was having no difficulties whatsoever. Denies any dysuria or hematuria. Review of Systems Review of Systems: All systems reviewed & are unremarkable except as noted in HPI and below Exam Narrative: General: Awake, alert, no acute distress HEENT: Normocephalic, atraumatic, sclerae anicteric Respiratory: Normal respiratory effort, no accessory muscle use Abdomen: Nondistended, soft, nontender : Jackson catheter draining clear yellow urine Skin: Normal coloration, warm and dry Neurologic: No focal neuro deficits noted Psychiatric: Appropriate mood and affect, judgment and insight intact Objective Data Vital Signs Vital Signs: Vital Signs - 24 hr 03/15/24 09:30 03/15/24 11:22 03/15/24 12:00 Temperature Pulse Rate 72 Respiratory Rate Blood Pressure 100/50 L Pulse Oximetry Oxygen Delivery Nasal Cannula Oxygen Flow Rate 2 03/15/24 12:17 03/15/24 16:00 03/15/24 17:30 Temperature 97.0 F L 97.8 F Pulse Rate 72 74 77 Respiratory Rate 18 18 Blood Pressure 97/56 L 101/52 L Pulse Oximetry 100 99 Oxygen Delivery Oxygen Flow Rate 03/15/24 19:55 03/15/24 20:40 03/15/24 20:00 Temperature 97.7 F Pulse Rate 77 74 Respiratory Rate 18 Blood Pressure 105/51 L Pulse Oximetry 99 99 Oxygen Delivery Nasal Cannula Oxygen Flow Rate 2 03/16/24 00:00 03/16/24 04:52 03/16/24 04:00 Temperature 98.0 F Pulse Rate 73 69 71 Respiratory Rate 18 Blood Pressure 104/51 L Pulse Oximetry 95 Oxygen Delivery Oxygen Flow Rate 03/16/24 07:48 03/16/24 08:26 03/16/24 07:56 Temperature 97.8 F Pulse Rate 82 74 Respiratory Rate 16 17 Blood Pressure 96/55 L Pulse Oximetry 100 Oxygen Delivery Nasal Cannula Oxygen Flow Rate 2 Intake/Output Intake/Output: Intake & Output 03/13/24 03/14/24 03/15/24 03/16/24 23:59 23:59 23:59 23:59 Intake Total 3685.4 1740 Output Total 700 900 Balance 2985.4 840 Meds/Results Medications: Active Medicati
--- NOTE | 2024-03-16 09:51 | P.PNIM_ITS ---
Progress Note: A&P Assessment and Plan (1) Acute hyponatremia: Code(s): E87.1 - Hypo-osmolality and hyponatremia Status: Acute Assessment and Plan: 03/15/24: * Likely secondary to use of diuretics, patient is on Lasix and HCTZ * Initial Na+ 126, now 125 * Continue NS at 125ml/hr * Recheck sodium at 1600 today * Check urine sodium, urine osmolarity, serum osmolarity, and cortisol level * Continue to hold Lasix and HCTZ * Continue cardiac monitoring 03/16/24: * Na+ 128 today * Will restart Lasix today now that MARIA LUZ is resolving (2) Acute kidney injury: Code(s): N17.9 - Acute kidney failure, unspecified Status: Acute Assessment and Plan: 03/15/24: * likely secondary to dehydration from overuse of diuretics. * Creatinine 1.4 on admission, currently 1.4 * Baseline creatinine appears to be around 0.92-1.07 * Continue to hold Lasix and HCTZ 03/16/24: * Creatinine 1.10 today * Will restart Lasix and HCTZ today (3) Urinary retention: Code(s): R33.9 - Retention of urine, unspecified Status: Acute Assessment and Plan: 03/15/24: * Bladder scan showing greater than 490 mL of urine in the bladder * Patient has history of BPH on terazosin * Jackson catheter placed * Urology consulted 03/16/24: * Urinary retention secondary to fecal impaction. * Will do bladder trial once fecal impaction is resolved * Urology following * Continue Terazosin (4) BPH (benign prostatic hyperplasia): Qualifiers: Lower urinary tract symptom presence: symptoms absent Qualified Code(s): N40.0 - Benign prostatic hyperplasia without lower urinary tract symptoms Code(s): N40.0 - Benign prostatic hyperplasia without lower urinary tract symptoms Status: Chronic Assessment and Plan: 03/15/24: * Continue Terazosin 03/16/24: * No change to current treatment plan (5) Acute hypokalemia: Code(s): E87.6 - Hypokalemia Status: Acute Assessment and Plan: 03/15/24: * Initial potassium 2.6 * Patient was given 40 meq of KCL on admission * Recheck of potassium today 2.9, will give additional 60 meq today * Will recheck potassium at 1600 today * Continue to trend labs daily * Continue cardiac monitoring 03/16/24: * Potassium 2.7 today, will replace with 60 meq of KCL today * Continue to trend * Continue cardiac monitoring (6) Elevated liver enzymes: Code(s): R74.8 - Abnormal levels of other serum enzymes Status: Acute Assessment and Plan: 03/15/24: * suspect shocked liver due to pre-renal azotemia due to overuse of diuretics * AST 270, ALT 79 on admission * Total bili normal * Today liver enzymes are trending down, AST 221, ALT 82 * Continue to trend. 03/16/24: * AST 99, ALT 58 * Continue to trend (7) Generalized weakness: Code(s): R53.1 - Weakness Status: Acute Assessment and Plan: 03/15/24: * Walks with cane, sustained a fall yesterday * Continue fall precautions * PT and OT ordered * Head CT negative for any acute intracranial process * C-spine CT negative for any acute fracture or malalignment * Left elbow x-ray shown small joint effusion * Bilateral hip and pelvis x-ray was negative for any acute findings * Bilateral knee x-ray shown irregularity of the left patellar tendon 03/16/24: * Continue PT and OT * Can benefit from SNF placement * Case management following for discharge needs (8) COPD (chronic obstructive pulmonary disease): Qualifiers:
--- NOTE | 2024-03-16 09:51 | PM.IMPN ---
Progress Note: A&P Assessment and Plan (1) Acute hyponatremia: Code(s): E87.1 - Hypo-osmolality and hyponatremia Status: Acute Assessment and Plan: 03/15/24: Likely secondary to use of diuretics, patient is on Lasix and HCTZ Initial Na+ 126, now 125 Continue NS at 125ml/hr Recheck sodium at 1600 today Check urine sodium, urine osmolarity, serum osmolarity, and cortisol level Continue to hold Lasix and HCTZ Continue cardiac monitoring 03/16/24: Na+ 128 today Will restart Lasix today now that MARIA LUZ is resolving (2) Acute kidney injury: Code(s): N17.9 - Acute kidney failure, unspecified Status: Acute Assessment and Plan: 03/15/24: likely secondary to dehydration from overuse of diuretics. Creatinine 1.4 on admission, currently 1.4 Baseline creatinine appears to be around 0.92-1.07 Continue to hold Lasix and HCTZ 03/16/24: Creatinine 1.10 today Will restart Lasix and HCTZ today (3) Urinary retention: Code(s): R33.9 - Retention of urine, unspecified Status: Acute Assessment and Plan: 03/15/24: Bladder scan showing greater than 490 mL of urine in the bladder Patient has history of BPH on terazosin Jackson catheter placed Urology consulted 03/16/24: Urinary retention secondary to fecal impaction. Will do bladder trial once fecal impaction is resolved Urology following Continue Terazosin (4) BPH (benign prostatic hyperplasia): Qualifiers: Lower urinary tract symptom presence: symptoms absent Qualified Code(s): N40.0 - Benign prostatic hyperplasia without lower urinary tract symptoms Code(s): N40.0 - Benign prostatic hyperplasia without lower urinary tract symptoms Status: Chronic Assessment and Plan: 03/15/24: Continue Terazosin 03/16/24: No change to current treatment plan (5) Acute hypokalemia: Code(s): E87.6 - Hypokalemia Status: Acute Assessment and Plan: 03/15/24: Initial potassium 2.6 Patient was given 40 meq of KCL on admission Recheck of potassium today 2.9, will give additional 60 meq today Will recheck potassium at 1600 today Continue to trend labs daily Continue cardiac monitoring 03/16/24: Potassium 2.7 today, will replace with 60 meq of KCL today Continue to trend Continue cardiac monitoring (6) Elevated liver enzymes: Code(s): R74.8 - Abnormal levels of other serum enzymes Status: Acute Assessment and Plan: 03/15/24: suspect shocked liver due to pre-renal azotemia due to overuse of diuretics AST 270, ALT 79 on admission Total bili normal Today liver enzymes are trending down, AST 221, ALT 82 Continue to trend. 03/16/24: AST 99, ALT 58 Continue to trend (7) Generalized weakness: Code(s): R53.1 - Weakness Status: Acute Assessment and Plan: 03/15/24: Walks with cane, sustained a fall yesterday Continue fall precautions PT and OT ordered Head CT negative for any acute intracranial process C-spine CT negative for any acute fracture or malalignment Left elbow x-ray shown small joint effusion Bilateral hip and pelvis x-ray was negative for any acute findings Bilateral knee x-ray shown irregularity of the left patellar tendon 03/16/24: Continue PT and OT Can benefit from SNF placement Case management following for discharge needs (8) COPD (chronic obstructive pulmonary disease): Qualifiers: COPD type: unspecified COPD Qualified Code(s): J44.9 - Chronic obstructive pulmonary disease, unspecified Code(s): J44.9 - Chronic obstructive pulmonary disease, unspecified Status: Chronic Assessment and Plan: 03/15/24: CXR- shown subsegmental and linear left basilar atelectasis/consolidation, possible small left pleural effusion Continue Albuterol inhaler PRN for SOB/wheezing Currently on 2L NC which is patient's baseline O2 needs 03/16/24: No change to current treatment plan (
--- NOTE | 2024-03-16 10:28 | PCOTNOTE ---
Attempted to see Patient at this time. Patient's son present and encouraging Patient to participate but Patient verbalizing he is severely dizzy and nauseous. Per RN, Patient's blood pressure has been running low. Patient refuses to have therapist elevate the head of the bed due to his head is swimming and he feels like he is going to vomit. RN notified and aware.
[2024-03-16] MEDS: TERAZOSIN HCL 5 MG CAPSULE PO ×2 (10:34→17:11)
[2024-03-16 12:05] LABS: Glucose Point of Care 294 mg/dl (65-105)
[2024-03-16] MEDS: POTASSIUM CHLORIDE 20 MEQ ER TABLET PO (12:07)
[2024-03-16] MEDS: INSULIN ASPART (*BKC) 100 UNITS/ML SUB-Q ×3 (12:07→20:45)
[2024-03-16] MEDS: ONDANSETRON INJ 4 MG/2 ML VIAL IV PUSH (12:15)
[2024-03-16] MEDS: FUROSEMIDE 20 MG TABLET PO (12:56)
[2024-03-16] MEDS: SIMVASTATIN 20 MG TABLET 40 MG PO (12:56)
[2024-03-16] MEDS: hydroCHLOROthiazide 25 MG TABLET PO (15:00)
[2024-03-16 17:03] LABS: Glucose Point of Care 244 mg/dl (65-105)
[2024-03-16] MEDS: DICLOFENAC SODIUM 1% 100 GM GEL (*BKC) 1 APPLIC TOPICAL ×2 (17:11→20:45)
[2024-03-16 20:29] LABS: Glucose Point of Care 238 mg/dl (65-105)
[2024-03-17] VITALS (13 sets, daily range): BP systolic 90–102; BP diastolic 50–58; PULSE 66–77; RESP 16–18; TEMP 36.7–36.9; O2SAT 94–99
[2024-03-17] MEDS: ACETAMINOPHEN 325 MG TABLET 650 MG PO ×2 (00:10→12:08)
[2024-03-17 05:09] LABS: Basophils Percent Auto 0.5 % (0.2-1.2); Eosinophils Absolute Auto 0.1 K/mm3 (0-0.3); Hemoglobin 8.1 g/dL (14.0-18.0); Immature Granulocyte Absolute 0.04 K/mm3 (0.00-0.031); Immature Granulocyte Percent A 0.7 % (0-0.5); Lymphocytes Absolute Auto 1.71 K/mm3 (0.9-3.2); Lymphocytes Percent Auto 27.9 % (18.3-44.2); Mean Corpuscular HGB Conc 32.4 g/dl (32-36); Mean Corpuscular Hemoglobin 32.3 pg (26-34); Mean Corpuscular Volume 99.6 fl (80-100); Mean Platelet Volume 8.9 fl (7.4-10.4); Monocytes Absolute Auto 0.6 K/mm3 (0.1-0.6); Monocytes Percent Auto 10.4 % (2.6-8.5); Neutrophils Absolute Auto 3.6 K/mm3 (1.3-6.7); Neutrophils Percent Auto 58.5 % (45.5-73.1); Platelet Count Result 213 k/mm3 (150-375); Red Blood Count 2.51 M/mm3 (4.6-6.20); Red Cell Distribution Width 13.5 % (11.5-14.5); White Blood Count 6.1 K/mm3 (4.5-10.0)
[2024-03-17 05:25] LABS: Alanine Aminotransferase 53 U/L (6-50); Alkaline Phosphatase 48 U/L (38-126); Anion Gap -2 mmol/L (4-12); Aspartate Amino Transferase 64 U/L (17-59); Bilirubin,Total 0.4 mg/dL (0.2-1.3); Blood Urea Nitrogen 23 mg/dL (9-20); Calcium 8.5 mg/dL (8.4-10.2); Carbon Dioxide 39 mmol/L (22-30); Chloride 92 mmol/L (98-107); Estimated CRCL calculation 49 ml/min; Estimated Glomerular Filt Rate > 60; Glucose 144 mg/dL (65-110); Potassium 3.7 mmol/L (3.4-5.0); Sodium 129 mmol/L (137-145)
[2024-03-17] MEDS: FLUTICASONE/UMECLIDIN/VILANTER 100-62.5-25 MCG ELLIPTA 1 PUFF INHALATION (07:13)
[2024-03-17 08:38] LABS: Glucose Point of Care 142 mg/dl (65-105)
[2024-03-17] MEDS: SIMVASTATIN 20 MG TABLET 40 MG PO (08:58)
[2024-03-17] MEDS: ASPIRIN 81 MG ENTERIC TABLET PO (08:58)
[2024-03-17] MEDS: LACTULOSE 20 GM/30 ML UDC PO ×2 (08:58→17:33)
[2024-03-17] MEDS: ENOXAPARIN 40 MG/0.4 ML SYRINGE SUB-Q (08:58)
[2024-03-17] MEDS: FUROSEMIDE 20 MG TABLET PO (08:58)
[2024-03-17] MEDS: hydroCHLOROthiazide 25 MG TABLET PO (08:58)
[2024-03-17] MEDS: TERAZOSIN HCL 5 MG CAPSULE PO ×2 (08:58→17:33)
[2024-03-17] MEDS: NICOTINE (*PBKC) 21 MG PATCH 1 PATCH TRANSDERM (08:59)
[2024-03-17] MEDS: DICLOFENAC SODIUM 1% 100 GM GEL (*BKC) 1 APPLIC TOPICAL ×4 (08:59→19:58)
[2024-03-17] MEDS: IPRATROPIUM NASAL SPRAY 0.06% 15 ML BOTTLE 2 SPRAY NASAL ×4 (08:59→19:59)
--- NOTE | 2024-03-17 09:25 | P.PNIM_ITS ---
Progress Note: A&P Assessment and Plan (1) Acute hyponatremia: Code(s): E87.1 - Hypo-osmolality and hyponatremia Status: Acute (2) Urinary retention: Code(s): R33.9 - Retention of urine, unspecified Status: Acute (3) COPD (chronic obstructive pulmonary disease): Qualifiers: COPD type: unspecified COPD Qualified Code(s): J44.9 - Chronic obstructive pulmonary disease, unspecified Code(s): J44.9 - Chronic obstructive pulmonary disease, unspecified Status: Chronic Plan (1) Acute hyponatremia: ?Code(s): E87.1 - Hypo-osmolality and hyponatremia ?Status:?Acute Likely secondary to use of diuretics, patient is on Lasix and HCTZ and dehydration discontinue Lasix? and HCTZ today the blood pressure on the lower side, elevated BUN creatinine ratio Start normal saline IV 100 mL/hour Metabolic Alkalosis Likely secondary to Lasix hold Lasix Follow ABG (3) Urinary retention: ?Code(s): R33.9 - Retention of urine, unspecified ?Status:?Acute ?Assessment and Plan: 03/15/24: * Bladder scan showing greater than 490 mL of urine in the bladder * Patient has history of BPH on terazosin * Jackson catheter placed * Urology consulted Urology following * Continue Terazosi * (4) BPH (benign prostatic hyperplasia): ?Qualifiers: ?Lower urinary tract symptom presence:?symptoms absent? Qualified Code(s):?N40.0 - Benign prostatic hyperplasia without lower urinary tract symptoms ?Code(s): N40.0 - Benign prostatic hyperplasia without lower urinary tract symptoms ?Status:?Chronic ?Assessment and Plan: 03/15/24: * Continue Terazosin 03/16/24: * No change to current treatment plan (5) Acute hypokalemia: hold diuretic medication, replete with potassium chloride Continue cardiac monitoring (6) Elevated liver enzymes: ?Code(s): R74.8 - Abnormal levels of other serum enzymes ?Status:?Acute ?Assessment and Plan: 03/15/24: * suspect shocked liver due to pre-renal azotemia due to overuse of diuretics * AST 270, ALT 79 on admission * Total bili normal * Today liver enzymes are trending down, AST 221, ALT 82 * Continue to trend. 03/16/24: * AST 99, ALT 58 * Continue to trend (7) Generalized weakness: ?Code(s): R53.1 - Weakness ? ? and fall * Continue fall precautions * PT and OT ordered * Head CT negative for any acute intracranial process * C-spine CT negative for any acute fracture or malalignment * Left elbow x-ray shown small joint effusion * Bilateral hip and pelvis x-ray was negative for any acute findings * Bilateral knee x-ray shown irregularity of the left patellar tendon * Can benefit from SNF placement * Case management following for discharge needs * (8) COPD (chronic obstructive pulmonary disease): ?Qualifiers: ?COPD type:?unspecified COPD? Qualified Code(s):?J44.9 - Chronic obstructive pulmonary disease, unspecified ?Code(s): J44.9 - Chronic obstructive pulmonary disease, unspecified ?Status:?Chronic ?Assessment and Plan: * CXR- shown subsegmental and linear left basilar atelectasis/consolidation, possible small left pleural effusion * Continue Albuterol inhaler PRN for SOB/wheezing * Currently on 2L NC which is patient's baseline O2 needs * No change to current treatment plan * Type 2 diabetes mellitus with hyperglycemia ?Status:?Chronic ?Assessment and Plan:
--- NOTE | 2024-03-17 09:25 | PM.IMPN ---
Progress Note: A&P Assessment and Plan (1) Acute hyponatremia: Code(s): E87.1 - Hypo-osmolality and hyponatremia Status: Acute (2) Urinary retention: Code(s): R33.9 - Retention of urine, unspecified Status: Acute (3) COPD (chronic obstructive pulmonary disease): Qualifiers: COPD type: unspecified COPD Qualified Code(s): J44.9 - Chronic obstructive pulmonary disease, unspecified Code(s): J44.9 - Chronic obstructive pulmonary disease, unspecified Status: Chronic Plan (1) Acute hyponatremia: ?Code(s): E87.1 - Hypo-osmolality and hyponatremia ?Status:?Acute Likely secondary to use of diuretics, patient is on Lasix and HCTZ and dehydration discontinue Lasix? and HCTZ today the blood pressure on the lower side, elevated BUN creatinine ratio Start normal saline IV 100 mL/hour Metabolic Alkalosis Likely secondary to Lasix hold Lasix Follow ABG (3) Urinary retention: ?Code(s): R33.9 - Retention of urine, unspecified ?Status:?Acute ?Assessment and Plan: 03/15/24: Bladder scan showing greater than 490 mL of urine in the bladder Patient has history of BPH on terazosin Jackson catheter placed Urology consulted Urology following Continue Terazosi (4) BPH (benign prostatic hyperplasia): ?Qualifiers: ?Lower urinary tract symptom presence:?symptoms absent? Qualified Code(s):?N40.0 - Benign prostatic hyperplasia without lower urinary tract symptoms ?Code(s): N40.0 - Benign prostatic hyperplasia without lower urinary tract symptoms ?Status:?Chronic ?Assessment and Plan: 03/15/24: Continue Terazosin 03/16/24: No change to current treatment plan (5) Acute hypokalemia: hold diuretic medication, replete with potassium chloride Continue cardiac monitoring (6) Elevated liver enzymes: ?Code(s): R74.8 - Abnormal levels of other serum enzymes ?Status:?Acute ?Assessment and Plan: 03/15/24: suspect shocked liver due to pre-renal azotemia due to overuse of diuretics AST 270, ALT 79 on admission Total bili normal Today liver enzymes are trending down, AST 221, ALT 82 Continue to trend. 03/16/24: AST 99, ALT 58 Continue to trend (7) Generalized weakness: ?Code(s): R53.1 - Weakness ? ? and fall Continue fall precautions PT and OT ordered Head CT negative for any acute intracranial process C-spine CT negative for any acute fracture or malalignment Left elbow x-ray shown small joint effusion Bilateral hip and pelvis x-ray was negative for any acute findings Bilateral knee x-ray shown irregularity of the left patellar tendon Can benefit from SNF placement Case management following for discharge needs (8) COPD (chronic obstructive pulmonary disease): ?Qualifiers: ?COPD type:?unspecified COPD? Qualified Code(s):?J44.9 - Chronic obstructive pulmonary disease, unspecified ?Code(s): J44.9 - Chronic obstructive pulmonary disease, unspecified ?Status:?Chronic ?Assessment and Plan: CXR- shown subsegmental and linear left basilar atelectasis/consolidation, possible small left pleural effusion Continue Albuterol inhaler PRN for SOB/wheezing Currently on 2L NC which is patient's baseline O2 needs No change to current treatment plan Type 2 diabetes mellitus with hyperglycemia ?Status:?Chronic ?Assessment and Plan: 03/15/24: Blood sugars ranging 168-180 Last Hgb A1C was 7.2 on 12/19/23 Accu checks AC/HS hypoglycemic protocol in place low dose SSI ordered hold metformin Diabetic diet ordered 03/16/24: BG ranging 144-153 Continue with current treatment plan Subjective Date/time seen: 03/17/24 09:25 Interval history: I saw exam patient today, patient still has general weakness, but can ambulate with physical therapist, and patient had1 movement, denies abdomen pain labs reviewed Exam Narrative: GENERAL: Plea
[2024-03-17 10:01] LABS: Alveolar/Arterial O2 Gradient 67.9 mmHg; Base Excess ABG 10.5 mEq/l (+/-2.0); Device NASAL CANNULA; Fractional Inspired Oxygen 28 %; HCO3 ABG 35.5 mEq/l (22.0-26.0); Oxygen Content ABG 11.9 %vol (16.0-22.0); Oxyhemoglobin 93.2 % THb (90.0-100.0); PCO2 ABG 50.7 mmHg (35.0-45.0); PO2 ABG 71.9 mmHg (80.0-100.0); PO2 FiO2 Ratio Arterial Blood 2.57 %; Site Drawn LEFT BRACHIAL; pH ABG 7.463 (7.350-7.450)
[2024-03-17 11:57] LABS: Glucose Point of Care 285 mg/dl (65-105)
[2024-03-17] MEDS: SODIUM CHLORIDE 0.9% IV 1,000 ML 100 ML IV CONT ×2 (11:58→22:32)
[2024-03-17] MEDS: INSULIN ASPART (*BKC) 100 UNITS/ML SUB-Q ×2 (11:58→19:58)
[2024-03-17 17:07] LABS: Glucose Point of Care 134 mg/dl (65-105)
[2024-03-17] MEDS: POTASSIUM CHLORIDE 20 MEQ PACKET (FOR LIQUID) PO (17:34)
[2024-03-17 20:29] LABS: Glucose Point of Care 242 mg/dl (65-105)
[2024-03-18] VITALS (12 sets, daily range): BP systolic 102–115; BP diastolic 59–63; PULSE 68–77; RESP 16–18; TEMP 36.5–36.9; O2SAT 95–99
[2024-03-18 05:23] LABS: Basophils Percent Auto 0.6 % (0.2-1.2); Eosinophils Absolute Auto 0.2 K/mm3 (0-0.3); Eosinophils Percent Auto 2.9 % (0-4.4); Hematocrit 25.6 % (42.0-52.0); Immature Granulocyte Absolute 0.03 K/mm3 (0.00-0.031); Immature Granulocyte Percent A 0.6 % (0-0.5); Lymphocytes Absolute Auto 1.54 K/mm3 (0.9-3.2); Lymphocytes Percent Auto 29.4 % (18.3-44.2); Mean Corpuscular HGB Conc 31.3 g/dl (32-36); Mean Corpuscular Volume 102.4 fl (80-100); Mean Platelet Volume 9.1 fl (7.4-10.4); Monocytes Absolute Auto 0.5 K/mm3 (0.1-0.6); Monocytes Percent Auto 9.4 % (2.6-8.5); Neutrophils Percent Auto 57.1 % (45.5-73.1); Platelet Count Result 212 k/mm3 (150-375); Red Cell Distribution Width 13.2 % (11.5-14.5); White Blood Count 5.2 K/mm3 (4.5-10.0)
[2024-03-18 05:40] LABS: Alanine Aminotransferase 53 U/L (6-50); Albumin Level 2.9 g/dL (3.5-5.1); Alkaline Phosphatase 42 U/L (38-126); Anion Gap -2 mmol/L (4-12); Aspartate Amino Transferase 53 U/L (17-59); Bilirubin,Total 0.4 mg/dL (0.2-1.3); Blood Urea Nitrogen 16 mg/dL (9-20); Calcium 8.6 mg/dL (8.4-10.2); Carbon Dioxide 39 mmol/L (22-30); Chloride 91 mmol/L (98-107); Estimated CRCL calculation 59 ml/min; Estimated Glomerular Filt Rate > 60; Glucose 111 mg/dL (65-110); Magnesium 1.7 mg/dL (1.6-2.3); Potassium 3.8 mmol/L (3.4-5.0); Sodium 128 mmol/L (137-145)
[2024-03-18] MEDS: FLUTICASONE/UMECLIDIN/VILANTER 100-62.5-25 MCG ELLIPTA 1 PUFF INHALATION (07:15)
--- NOTE | 2024-03-18 07:37 | P.PNIM_ITS ---
Progress Note: A&P Assessment and Plan (1) Acute hyponatremia: Code(s): E87.1 - Hypo-osmolality and hyponatremia Status: Acute (2) Urinary retention: Code(s): R33.9 - Retention of urine, unspecified Status: Acute (3) COPD (chronic obstructive pulmonary disease): Qualifiers: COPD type: unspecified COPD Qualified Code(s): J44.9 - Chronic obstructive pulmonary disease, unspecified Code(s): J44.9 - Chronic obstructive pulmonary disease, unspecified Status: Chronic Plan (1) Acute hyponatremia: ?Code(s): E87.1 - Hypo-osmolality and hyponatremia ?Status:?Acute Likely secondary to use of diuretics, patient is on Lasix and HCTZ and dehydration discontinue Lasix? and HCTZ today repeat lab showed today hyponatremia 128, chloride 91 And sodium chloride 2 g b.i.d. p.o. Follow-up BMP the blood pressure on the lower side, elevated BUN creatinine ratio Start normal saline IV 100 mL/hour blood pressure stable but soft, continue normal saline IV Metabolic Alkalosis Likely secondary to Lasix hold Lasix Follow ABG this shows decompensated metabolic alkalosis, possible secondary to diuretic medication Urinary retention: ?Code(s): R33.9 - Retention of urine, unspecified ?Status:?Acute ?Assessment and Plan: 03/15/24: * Bladder scan showing greater than 490 mL of urine in the bladder * Patient has history of BPH on terazosin * Jackson catheter placed * Urology consulted Urology following * Continue Terazosi * BPH (benign prostatic hyperplasia): ?Qualifiers: ?Lower urinary tract symptom presence:?symptoms absent? Qualified Code(s):?N40.0 - Benign prostatic hyperplasia without lower urinary tract symptoms ?Code(s): N40.0 - Benign prostatic hyperplasia without lower urinary tract symptoms * Continue Terazosin Acute hypokalemia: hold diuretic medication, replete with potassium chloride Continue cardiac monitoring corrected Elevated liver enzymes: ?Code(s): R74.8 - Abnormal levels of other serum enzymes ?Status:?Acute ?Assessment and Plan: 03/15/24: * suspect shocked liver due to pre-renal azotemia due to overuse of diuretics * AST 270, ALT 79 on admission * Total bili normal * Today liver enzymes are trending down, AST 221, ALT 82 * Continue to trend. 03/16/24: * AST 99, ALT 58 * Continue to trend (7) Generalized weakness: ?Code(s): R53.1 - Weakness ? ? and fall * Continue fall precautions * PT and OT ordered * Head CT negative for any acute intracranial process * C-spine CT negative for any acute fracture or malalignment * Left elbow x-ray shown small joint effusion * Bilateral hip and pelvis x-ray was negative for any acute findings * Bilateral knee x-ray shown irregularity of the left patellar tendon * Can benefit from SNF placement * Case management following for discharge needs * (8) COPD (chronic obstructive pulmonary disease): ?Qualifiers: ?COPD type:?unspecified COPD? Qualified Code(s):?J44.9 - Chronic obstructive pulmonary disease, unspecified ?Code(s): J44.9 - Chronic obstructive pulmonary disease, unspecified ?Status:?Chronic ?Assessment and Plan: * CXR- shown subsegmental and linear left basilar atelectasis/consolidation, possible small left pleural effusion * Continue Albuterol inhaler PRN for SOB/wheezing * Currently on 2L NC which is patient's baseline O2 needs * No change to current domitila
--- NOTE | 2024-03-18 07:37 | PM.IMPN ---
Progress Note: A&P Assessment and Plan (1) Acute hyponatremia: Code(s): E87.1 - Hypo-osmolality and hyponatremia Status: Acute (2) Urinary retention: Code(s): R33.9 - Retention of urine, unspecified Status: Acute (3) COPD (chronic obstructive pulmonary disease): Qualifiers: COPD type: unspecified COPD Qualified Code(s): J44.9 - Chronic obstructive pulmonary disease, unspecified Code(s): J44.9 - Chronic obstructive pulmonary disease, unspecified Status: Chronic Plan (1) Acute hyponatremia: ?Code(s): E87.1 - Hypo-osmolality and hyponatremia ?Status:?Acute Likely secondary to use of diuretics, patient is on Lasix and HCTZ and dehydration discontinue Lasix? and HCTZ today repeat lab showed today hyponatremia 128, chloride 91 And sodium chloride 2 g b.i.d. p.o. Follow-up BMP the blood pressure on the lower side, elevated BUN creatinine ratio Start normal saline IV 100 mL/hour blood pressure stable but soft, continue normal saline IV Metabolic Alkalosis Likely secondary to Lasix hold Lasix Follow ABG this shows decompensated metabolic alkalosis, possible secondary to diuretic medication Urinary retention: ?Code(s): R33.9 - Retention of urine, unspecified ?Status:?Acute ?Assessment and Plan: 03/15/24: Bladder scan showing greater than 490 mL of urine in the bladder Patient has history of BPH on terazosin Jackson catheter placed Urology consulted Urology following Continue Terazosi BPH (benign prostatic hyperplasia): ?Qualifiers: ?Lower urinary tract symptom presence:?symptoms absent? Qualified Code(s):?N40.0 - Benign prostatic hyperplasia without lower urinary tract symptoms ?Code(s): N40.0 - Benign prostatic hyperplasia without lower urinary tract symptoms Continue Terazosin Acute hypokalemia: hold diuretic medication, replete with potassium chloride Continue cardiac monitoring corrected Elevated liver enzymes: ?Code(s): R74.8 - Abnormal levels of other serum enzymes ?Status:?Acute ?Assessment and Plan: 03/15/24: suspect shocked liver due to pre-renal azotemia due to overuse of diuretics AST 270, ALT 79 on admission Total bili normal Today liver enzymes are trending down, AST 221, ALT 82 Continue to trend. 03/16/24: AST 99, ALT 58 Continue to trend (7) Generalized weakness: ?Code(s): R53.1 - Weakness ? ? and fall Continue fall precautions PT and OT ordered Head CT negative for any acute intracranial process C-spine CT negative for any acute fracture or malalignment Left elbow x-ray shown small joint effusion Bilateral hip and pelvis x-ray was negative for any acute findings Bilateral knee x-ray shown irregularity of the left patellar tendon Can benefit from SNF placement Case management following for discharge needs (8) COPD (chronic obstructive pulmonary disease): ?Qualifiers: ?COPD type:?unspecified COPD? Qualified Code(s):?J44.9 - Chronic obstructive pulmonary disease, unspecified ?Code(s): J44.9 - Chronic obstructive pulmonary disease, unspecified ?Status:?Chronic ?Assessment and Plan: CXR- shown subsegmental and linear left basilar atelectasis/consolidation, possible small left pleural effusion Continue Albuterol inhaler PRN for SOB/wheezing Currently on 2L NC which is patient's baseline O2 needs No change to current treatment plan Type 2 diabetes mellitus with hyperglycemia ?Status:?Chronic ?Assessment and Plan: Blood sugars ranging 168-180 Last Hgb A1C was 7.2 on 12/19/23 Accu checks AC/HS hypoglycemic protocol in place low dose SSI ordered hold metformin Continue with current treatment plan Subjective Date/time seen: 03/18/24 07:37 Interval history: Patient is afebrile, blood pressure became stable, no O2 desaturation, labs reviewed, sodium level still low, but stable, d
[2024-03-18 08:27] LABS: Glucose Point of Care 125 mg/dl (65-105)
[2024-03-18] MEDS: SODIUM CHLORIDE 0.9% IV 1,000 ML 100 ML IV CONT (09:39)
[2024-03-18] MEDS: NICOTINE (*PBKC) 21 MG PATCH 1 PATCH TRANSDERM (09:53)
[2024-03-18] MEDS: ENOXAPARIN 40 MG/0.4 ML SYRINGE SUB-Q (09:53)
[2024-03-18] MEDS: ASPIRIN 81 MG ENTERIC TABLET PO (09:53)
[2024-03-18] MEDS: SIMVASTATIN 20 MG TABLET 40 MG PO (09:53)
[2024-03-18] MEDS: SODIUM CHLORIDE 1 GM TABLET 2 GM PO ×2 (09:53→17:16)
[2024-03-18] MEDS: DICLOFENAC SODIUM 1% 100 GM GEL (*BKC) 1 APPLIC TOPICAL ×4 (09:54→21:20)
[2024-03-18] MEDS: POTASSIUM CHLORIDE 20 MEQ PACKET (FOR LIQUID) PO ×2 (09:54→17:16)
[2024-03-18] MEDS: TERAZOSIN HCL 5 MG CAPSULE PO ×2 (09:54→17:16)
[2024-03-18] MEDS: IPRATROPIUM NASAL SPRAY 0.06% 15 ML BOTTLE 2 SPRAY NASAL ×4 (09:54→21:21)
[2024-03-18] MEDS: LACTULOSE 20 GM/30 ML UDC PO ×2 (09:54→17:16)
[2024-03-18 11:03] LABS: Osmolality, Urine 495 mOsm/kg (50-1200)
[2024-03-18 12:21] LABS: Glucose Point of Care 253 mg/dl (65-105)
[2024-03-18] MEDS: INSULIN ASPART (*BKC) 100 UNITS/ML SUB-Q ×2 (12:25→21:20)
[2024-03-18 17:15] LABS: Glucose Point of Care 141 mg/dl (65-105)
[2024-03-18] MEDS: SODIUM CHLORIDE 0.9% IV 1,000 ML 125 ML IV CONT (20:00)
[2024-03-18 21:34] LABS: Glucose Point of Care 228 mg/dl (65-105)
[2024-03-19] VITALS (12 sets, daily range): BP systolic 101–119; BP diastolic 57–60; PULSE 71–81; RESP 18–20; TEMP 36.7–36.8; O2SAT 93–98
[2024-03-19] MEDS: SODIUM CHLORIDE 0.9% IV 1,000 ML 125 ML IV CONT (04:20)
[2024-03-19 05:32] LABS: Basophils Percent Auto 0.4 % (0.2-1.2); Eosinophils Absolute Auto 0.2 K/mm3 (0-0.3); Eosinophils Percent Auto 3.8 % (0-4.4); Hematocrit 24.5 % (42.0-52.0); Hemoglobin 7.9 g/dL (14.0-18.0); Immature Granulocyte Absolute 0.05 K/mm3 (0.00-0.031); Lymphocytes Absolute Auto 1.37 K/mm3 (0.9-3.2); Lymphocytes Percent Auto 27.7 % (18.3-44.2); Mean Corpuscular HGB Conc 32.2 g/dl (32-36); Mean Corpuscular Hemoglobin 32.4 pg (26-34); Mean Corpuscular Volume 100.4 fl (80-100); Mean Platelet Volume 9.1 fl (7.4-10.4); Monocytes Absolute Auto 0.5 K/mm3 (0.1-0.6); Monocytes Percent Auto 10.3 % (2.6-8.5); Neutrophils Absolute Auto 2.8 K/mm3 (1.3-6.7); Neutrophils Percent Auto 56.8 % (45.5-73.1); Platelet Count Result 239 k/mm3 (150-375); Red Blood Count 2.44 M/mm3 (4.6-6.20); Red Cell Distribution Width 13.3 % (11.5-14.5)
[2024-03-19 05:43] LABS: Alanine Aminotransferase 51 U/L (6-50); Albumin Level 2.9 g/dL (3.5-5.1); Alkaline Phosphatase 46 U/L (38-126); Anion Gap -1 mmol/L (4-12); Aspartate Amino Transferase 38 U/L (17-59); Bilirubin,Total 0.3 mg/dL (0.2-1.3); Blood Urea Nitrogen 12 mg/dL (9-20); Calcium 8.8 mg/dL (8.4-10.2); Carbon Dioxide 35 mmol/L (22-30); Chloride 98 mmol/L (98-107); Estimated CRCL calculation 59 ml/min; Estimated Glomerular Filt Rate > 60; Glucose 112 mg/dL (65-110); Magnesium 1.8 mg/dL (1.6-2.3); Potassium 4.2 mmol/L (3.4-5.0); Sodium 132 mmol/L (137-145)
[2024-03-19] MEDS: FLUTICASONE/UMECLIDIN/VILANTER 100-62.5-25 MCG ELLIPTA 1 PUFF INHALATION (07:00)
[2024-03-19 08:11] LABS: Glucose Point of Care 124 mg/dl (65-105)
--- NOTE | 2024-03-19 08:12 | P.PNIM_ITS ---
Progress Note: A&P Assessment and Plan (1) Acute hyponatremia: Code(s): E87.1 - Hypo-osmolality and hyponatremia Status: Acute (2) Urinary retention: Code(s): R33.9 - Retention of urine, unspecified Status: Acute (3) COPD (chronic obstructive pulmonary disease): Qualifiers: COPD type: unspecified COPD Qualified Code(s): J44.9 - Chronic obstructive pulmonary disease, unspecified Code(s): J44.9 - Chronic obstructive pulmonary disease, unspecified Status: Chronic Plan Acute hyponatremia: ?Code(s): E87.1 - Hypo-osmolality and hyponatremia ?Status:?Acute Likely secondary to use of diuretics, patient is on Lasix and HCTZ and dehydration discontinue Lasix? and HCTZ today repeat lab showed today hyponatremia 128, chloride 91 And sodium chloride 2 g b.i.d. p.o. Follow-up BMP sodium 132 chloride 98, continue hold water pills, change sodium chloride 1 g t.i.d. p.o. 6/3 the blood pressure on the lower side, elevated BUN creatinine ratio Start normal saline IV 100 mL/hour blood pressure stable but soft, continue normal saline IV / blood pressure stable, dc normal saline 100 mL/hour, Metabolic Alkalosis Likely secondary to Lasix hold Lasix Follow ABG this shows decompensated metabolic alkalosis, possible secondary to diuretic medication sodium bicarbonate is a trending down to 35 6/[address] finding Focal narrowing and wall thickening in the mid sigmoid colon, no surrounding inflammatory change to suggest active diverticulitis. Possible fecal impaction with adjacent wall thickening as can be seen with early stercoral colitis. Possible anorectal mass. Consider referral for endoscopy to evaluate the anorectal findings and the mid s igmoid narrowing. consult GI Urinary retention: ?Code(s): R33.9 - Retention of urine, unspecified ?Status:?Acute ?Assessment and Plan: 03/15/24: * Bladder scan showing greater than 490 mL of urine in the bladder * Patient has history of BPH on terazosin * Jackson catheter placed * Urology consulted Urology following * Continue Terazosi * BPH (benign prostatic hyperplasia): ?Qualifiers: ?Lower urinary tract symptom presence:?symptoms absent? Qualified Code(s):?N40.0 - Benign prostatic hyperplasia without lower urinary tract symptoms ?Code(s): N40.0 - Benign prostatic hyperplasia without lower urinary tract symptoms * Continue Terazosin Acute hypokalemia: hold diuretic medication, replete with potassium chloride Continue cardiac monitoring corrected Elevated liver enzymes: ?Code(s): R74.8 - Abnormal levels of other serum enzymes ?Status:?Acute ?Assessment and Plan: 03/15/24: * suspect shocked liver due to pre-renal azotemia due to overuse of diuretics * AST 270, ALT 79 on admission * Total bili normal * Today liver enzymes are trending down, AST 221, ALT 82 * Continue to trend. 03/16/24: * AST 99, ALT 58 * Continue to trend (7) Generalized weakness: ?Code(s): R53.1 - Weakness ? ? and fall * Continue fall precautions * PT and OT ordered * Head CT negative for any acute intracranial process * C-spine CT negative for any acute fracture or malalignment * Left elbow x-ray shown small joint effusion * Bilateral hip and pelvis x-ray was negative for any acute findings * Bilateral knee x-ray shown irregularity of the left patellar tendon * Can benefit from SNF placement * Case management following
--- NOTE | 2024-03-19 08:12 | PM.IMPN ---
Progress Note: A&P Assessment and Plan (1) Acute hyponatremia: Code(s): E87.1 - Hypo-osmolality and hyponatremia Status: Acute (2) Urinary retention: Code(s): R33.9 - Retention of urine, unspecified Status: Acute (3) COPD (chronic obstructive pulmonary disease): Qualifiers: COPD type: unspecified COPD Qualified Code(s): J44.9 - Chronic obstructive pulmonary disease, unspecified Code(s): J44.9 - Chronic obstructive pulmonary disease, unspecified Status: Chronic Plan Acute hyponatremia: ?Code(s): E87.1 - Hypo-osmolality and hyponatremia ?Status:?Acute Likely secondary to use of diuretics, patient is on Lasix and HCTZ and dehydration discontinue Lasix? and HCTZ today repeat lab showed today hyponatremia 128, chloride 91 And sodium chloride 2 g b.i.d. p.o. Follow-up BMP sodium 132 chloride 98, continue hold water pills, change sodium chloride 1 g t.i.d. p.o. 6/3 the blood pressure on the lower side, elevated BUN creatinine ratio Start normal saline IV 100 mL/hour blood pressure stable but soft, continue normal saline IV / blood pressure stable, dc normal saline 100 mL/hour, Metabolic Alkalosis Likely secondary to Lasix hold Lasix Follow ABG this shows decompensated metabolic alkalosis, possible secondary to diuretic medication sodium bicarbonate is a trending down to 35 6/[address] finding Focal narrowing and wall thickening in the mid sigmoid colon, no surrounding inflammatory change to suggest active diverticulitis. Possible fecal impaction with adjacent wall thickening as can be seen with early stercoral colitis. Possible anorectal mass. Consider referral for endoscopy to evaluate the anorectal findings and the mid sigmoid narrowing. consult GI Urinary retention: ?Code(s): R33.9 - Retention of urine, unspecified ?Status:?Acute ?Assessment and Plan: 03/15/24: Bladder scan showing greater than 490 mL of urine in the bladder Patient has history of BPH on terazosin Jackson catheter placed Urology consulted Urology following Continue Terazosi BPH (benign prostatic hyperplasia): ?Qualifiers: ?Lower urinary tract symptom presence:?symptoms absent? Qualified Code(s):?N40.0 - Benign prostatic hyperplasia without lower urinary tract symptoms ?Code(s): N40.0 - Benign prostatic hyperplasia without lower urinary tract symptoms Continue Terazosin Acute hypokalemia: hold diuretic medication, replete with potassium chloride Continue cardiac monitoring corrected Elevated liver enzymes: ?Code(s): R74.8 - Abnormal levels of other serum enzymes ?Status:?Acute ?Assessment and Plan: 03/15/24: suspect shocked liver due to pre-renal azotemia due to overuse of diuretics AST 270, ALT 79 on admission Total bili normal Today liver enzymes are trending down, AST 221, ALT 82 Continue to trend. 03/16/24: AST 99, ALT 58 Continue to trend (7) Generalized weakness: ?Code(s): R53.1 - Weakness ? ? and fall Continue fall precautions PT and OT ordered Head CT negative for any acute intracranial process C-spine CT negative for any acute fracture or malalignment Left elbow x-ray shown small joint effusion Bilateral hip and pelvis x-ray was negative for any acute findings Bilateral knee x-ray shown irregularity of the left patellar tendon Can benefit from SNF placement Case management following for discharge needs (8) COPD (chronic obstructive pulmonary disease): ?Qualifiers: ?COPD type:?unspecified COPD? Qualified Code(s):?J44.9 - Chronic obstructive pulmonary disease, unspecified ?Code(s): J44.9 - Chronic obstructive pulmonary disease, unspecified ?Status:?Chronic ?Assessment and Plan: CXR- shown subsegmental and linear left basilar atelectasis/consolidation, possible small left pleural effusion Continue Albuterol inhaler PRN for SOB/
[2024-03-19] MEDS: ASPIRIN 81 MG ENTERIC TABLET PO (08:39)
[2024-03-19] MEDS: TERAZOSIN HCL 5 MG CAPSULE PO ×2 (08:39→17:21)
[2024-03-19] MEDS: SODIUM CHLORIDE 1 GM TABLET PO ×3 (08:40→17:21)
[2024-03-19] MEDS: SIMVASTATIN 20 MG TABLET 40 MG PO (08:40)
[2024-03-19] MEDS: POTASSIUM CHLORIDE 20 MEQ PACKET (FOR LIQUID) PO ×2 (08:41→17:21)
[2024-03-19] MEDS: polyethylene glycoL 3350 17 GM POWD.PACK PO (08:41)
[2024-03-19] MEDS: NICOTINE (*PBKC) 21 MG PATCH 1 PATCH TRANSDERM (08:42)
[2024-03-19] MEDS: LACTULOSE 20 GM/30 ML UDC PO ×2 (08:43→17:20)
[2024-03-19] MEDS: ENOXAPARIN 40 MG/0.4 ML SYRINGE SUB-Q (08:44)
[2024-03-19] MEDS: DICLOFENAC SODIUM 1% 100 GM GEL (*BKC) 1 APPLIC TOPICAL ×4 (08:45→20:07)
[2024-03-19] MEDS: SODIUM CHLORIDE 0.9% IV 1,000 ML 75 ML IV CONT ×3 (08:46→23:25)
[2024-03-19] MEDS: IPRATROPIUM NASAL SPRAY 0.06% 15 ML BOTTLE 2 SPRAY NASAL ×4 (08:46→20:07)
--- NOTE | 2024-03-19 08:58 | WPDGICN ---
Assessment and Plan Assessment and plan (1) Abnormal digestive system diagnostic imaging: Code(s): R93.3 - Abnormal findings on diagnostic imaging of other parts of digestive tract Status: Acute (2) Fecal impaction: Code(s): K56.41 - Fecal impaction Status: Acute (3) Anemia of chronic disease: Code(s): D63.8 - Anemia in other chronic diseases classified elsewhere Status: Acute (4) Elevated liver transaminase level: Code(s): R74.01 - Elevation of levels of liver transaminase levels Status: Acute (5) Acute hyponatremia: Code(s): E87.1 - Hypo-osmolality and hyponatremia Status: Acute (6) Acute hypokalemia: Code(s): E87.6 - Hypokalemia Status: Acute Plan 1) Abnormal imaging digestive / fecal impaction / possible anorectal mass/ constipation with incomplete evacuation: The patient has never had a colonoscopy. Family history negative for CRC or IBD. CT 03/14/2024 showed focal narrowing and wall thickening in the mid sigmoid colon. Possible fecal impaction with adjacent wall thickening as seen with early stercoral colitis, and possible anal rectal mass. Prior to admission the patient states he was having a loose to formed non urgent bowel movement every 1-2 days with mild straining. He tried no medications at home for constipation. He does admit to feeling of incomplete evacuation following bowel movements. Currently on lactulose b.i.d. and MiraLax. Since admission he is having multiple loose bowel movements daily but denies any diarrhea, rectal pain, or hematochezia. Prior to admission the patient was taking ibuprofen daily and aspirin 81 mg daily. Clear liquid diet NPO after midnight start bowel prep this evening colonoscopy tomorrow 2) Anemia: Likely multifactorial given multiple chronic comorbidities. Patient has never had an EGD or colonoscopy. On admission HGB 10 and today HGB 8, HCT 25, MCV 100, platelets 239. INR 1.0. No signs of active GI bleeding. Primary care team to continue monitoring H&H and transfuse as needed to keep HGB > 7 plan for colonoscopy tomorrow 3) Elevated liver transaminase: On admission total bilirubin and alkaline phosphatase normal. AST 270 and ALT 79. Labs today showed LFTs have normalized except mildly elevated ALT at 51. No prior history of liver disease. Liver appears normal on imaging. Primary care team to continue monitoring 4) Hyponatremia/hypokalemia: On admission sodium at 126 and potassium at 2.6. labs today show sodium 132 and potassium 4.2. BUN and creatinine normal. Primary care team to continue monitoring and correct prior to endoscopy Thank you very much for allowing me to share in the care of this very nice patient. This report may have been done utilizing a voice recognition system. Attempts have been made to correct errors. However, there may be uncorrected grammatical, spelling, and recognition errors present. GI Consult Note Consult date/time: 03/19/24 08:58 Reason for consult: Possible anorectal mass HPI: John Gaona is a 83 year old male with past medical surgical Hx of COPD, diabetes, HTN, PVD, ventral hernia repair, AAA repair, CAD with stent. The patient was brought into the ER after being down unresponsive by his some 03/15/2024. Prior to admission the patient was having frequent fall, poor appetite and generalized weakness. On admission patient was showed to have sodium at 127 and potassium 3.2. GI was consulted for possible anorectal mass. Patient states that prior to his admission he was having bowel movements every 1-2 days with only mild straining. Patient does admit that he had a sensation of incomplete evacuation prior to and during this admission. He was taking no medications at home for constipation. He also complains of difficulty with urination prior to admission. He admits to a decreased appetite and tenesmus but otherwise denies any GI
--- NOTE | 2024-03-19 09:18 | WPDUROPN2 ---
Progress Note: A&P Assessment and Plan (1) Urinary retention: Code(s): R33.9 - Retention of urine, unspecified Status: Acute Assessment and Plan: Pelvic CT shows distended bladder and bladder scan demonstrated >490 cc. This is likely due to fecal impaction. Jackson catheter placed on 03/15/2024 and will be continued at this time. Continue home terazosin. Would recommend void trial following improvement/resolution of fecal impaction. (2) Fecal impaction: Code(s): K56.41 - Fecal impaction Status: Acute Assessment and Plan: Noted on pelvis CT. Also noted a masslike soft tissue density at the distal rectum/anus. Discussed with primary team and will proceed with GI evaluation in this setting. Fecal impaction is contributing to urinary retention. (3) BPH (benign prostatic hyperplasia): Qualifiers: Lower urinary tract symptom presence: symptoms absent Qualified Code(s): N40.0 - Benign prostatic hyperplasia without lower urinary tract symptoms Code(s): N40.0 - Benign prostatic hyperplasia without lower urinary tract symptoms Status: Chronic Assessment and Plan: Chronic issue maintained on terazosin for many years. Recommend outpatient follow-up after hospital discharge for continue management (4) Acute kidney injury: Code(s): N17.9 - Acute kidney failure, unspecified Status: Acute Assessment and Plan: Creatinine elevated to 1.4 on admission. Likely multifactorial, in part due to urinary retention. MAYELA reviewed with no hydro. Creatinine improved to 0.9 today Subjective Subjective Date/Time Seen: 03/19/24 09:18 Interval history: John is feeling well today. He does complain of suprapubic pressure. Has been having bowel movements the most recent x-ray still shows prominent fecal material. Denies abdominal pain, nausea fever chills. His Jackson catheter is draining clear yellow urine. Review of Systems Review of Systems: All systems reviewed & are unremarkable except as noted in HPI and below Exam Narrative: General: Awake, alert, no acute distress HEENT: Normocephalic, atraumatic, sclerae anicteric Respiratory: Normal respiratory effort, no accessory muscle use Abdomen: Nondistended, soft, nontender : Jackson catheter draining clear yellow urine Skin: Normal coloration, warm and dry Neurologic: No focal neuro deficits noted Psychiatric: Appropriate mood and affect, judgment and insight intact Objective Data Vital Signs Vital Signs: Vital Signs - 24 hr 03/18/24 09:45 03/18/24 12:00 03/18/24 13:57 Temperature 97.7 F Pulse Rate 70 72 Respiratory Rate 16 Blood Pressure 107/59 L Pulse Oximetry 95 98 Oxygen Delivery Nasal Cannula Oxygen Flow Rate 2 03/18/24 16:00 03/18/24 21:33 03/18/24 21:12 Temperature 98.5 F Pulse Rate 77 76 Respiratory Rate 18 Blood Pressure 115/59 L Pulse Oximetry 99 99 Oxygen Delivery Nasal Cannula Oxygen Flow Rate 2 03/18/24 20:00 03/19/24 00:00 03/19/24 04:00 Temperature Pulse Rate 75 75 73 Respiratory Rate Blood Pressure Pulse Oximetry Oxygen Delivery Oxygen Flow Rate 03/19/24 04:53 03/19/24 07:00 03/19/24 07:00 Temperature 98.0 F Pulse Rate 71 79 79 Respiratory Rate 18 18 18 Blood Pressure 107/60 Pulse Oximetry 94 93 Oxygen Delivery Nasal Cannula Oxygen Flow Rate 2 03/19/24 08:00 Temperature Pulse Rate 74 Respiratory Rate Blood Pressure Pulse Oximetry Oxygen Delivery Oxygen Flow Rate Intake/Output Intake/Output: Intake & Output 03/16/24 03/17/24 03/18/24 03/19/24 23:59 23:59 23:59 23:59 Intake Total 2810 3160 4030.0 2004.2 Output Total 1550 3000 4800 1000 Balance 1260 160 -770.0 1004.2 Meds/Results Medications: Active Medications Generic Name Dose Route Start Last Admin Trade Name Freq PRN Reason Stop Dose Admin Acetaminophen 650 mg 03/15/24 10:49
[2024-03-19 12:45] LABS: Glucose Point of Care 228 mg/dl (65-105)
[2024-03-19] MEDS: INSULIN ASPART (*BKC) 100 UNITS/ML SUB-Q (12:45)
[2024-03-19 17:01] LABS: Glucose Point of Care 115 mg/dl (65-105)
[2024-03-19] MEDS: BISACODYL 5 MG TABLET EC 20 MG PO (17:20)
[2024-03-19] MEDS: polyethylene glycoL 3350 238 GM BOTTLE PO (17:58)
[2024-03-19 20:27] LABS: Glucose Point of Care 193 mg/dl (65-105)
[2024-03-20] VITALS (17 sets, daily range): BP systolic 75–117; BP diastolic 41–84; PULSE 64–80; RESP 16–21; TEMP 36–36.8; O2SAT 96–100
[2024-03-20] MEDS: MAGNESIUM CITRATE 300 ML BTL PO (02:16)
[2024-03-20 05:49] LABS: Basophils Percent Auto 0.5 % (0.2-1.2); Eosinophils Absolute Auto 0.2 K/mm3 (0-0.3); Eosinophils Percent Auto 4.1 % (0-4.4); Hematocrit 27.6 % (42.0-52.0); Hemoglobin 8.7 g/dL (14.0-18.0); Immature Granulocyte Absolute 0.06 K/mm3 (0.00-0.031); Immature Granulocyte Percent A 1.1 % (0-0.5); Lymphocytes Absolute Auto 1.38 K/mm3 (0.9-3.2); Lymphocytes Percent Auto 24.8 % (18.3-44.2); Mean Corpuscular HGB Conc 31.5 g/dl (32-36); Mean Corpuscular Hemoglobin 31.8 pg (26-34); Mean Corpuscular Volume 100.7 fl (80-100); Monocytes Absolute Auto 0.6 K/mm3 (0.1-0.6); Monocytes Percent Auto 9.9 % (2.6-8.5); Neutrophils Absolute Auto 3.3 K/mm3 (1.3-6.7); Neutrophils Percent Auto 59.6 % (45.5-73.1); Platelet Count Result 258 k/mm3 (150-375); Red Blood Count 2.74 M/mm3 (4.6-6.20); Red Cell Distribution Width 13.7 % (11.5-14.5); White Blood Count 5.6 K/mm3 (4.5-10.0)
[2024-03-20 05:58] LABS: Alanine Aminotransferase 56 U/L (6-50); Albumin Level 3.4 g/dL (3.5-5.1); Alkaline Phosphatase 52 U/L (38-126); Anion Gap 3 mmol/L (4-12); Aspartate Amino Transferase 37 U/L (17-59); Bilirubin,Total 0.5 mg/dL (0.2-1.3); Blood Urea Nitrogen 10 mg/dL (9-20); Calcium 9.1 mg/dL (8.4-10.2); Carbon Dioxide 32 mmol/L (22-30); Chloride 98 mmol/L (98-107); Estimated CRCL calculation 59 ml/min; Estimated Glomerular Filt Rate > 60; Glucose 116 mg/dL (65-110); Magnesium 1.9 mg/dL (1.6-2.3); Potassium 4.4 mmol/L (3.4-5.0); Sodium 133 mmol/L (137-145)
[2024-03-20 06:50] LABS: Glucose Point of Care 111 mg/dl (65-105)
[2024-03-20] MEDS: LACTATED RINGERS 1,000 ML 150 ML IV CONT (06:57)
--- NOTE | 2024-03-20 07:23 | WPDANESEPPF ---
Anes - Initial Pre Proc Eval Procedure: Operation Date: 03/20/24 07:30 Proposed Procedures p Colonoscopy - Lavell Curtis MD Date/Time: 03/20/24 07:23 Surgeon: Chante Birch APRN Pre Op Diagnosis: Hyponatremia, Hypokalemia, Generalized weakness fr Patient Data Age: 83 Gender: M Height: 1.68 m Weight: 89.4 kg Last Vital Signs Temp 96.8 F L 03/20/24 06:50 Pulse 74 03/20/24 06:50 Resp 19 03/20/24 06:50 BP 112/54 L 03/20/24 06:50 Pulse Ox 100 03/20/24 06:50 O2 Del Method Nasal Cannula 03/20/24 06:50 O2 Flow Rate 2 03/20/24 06:50 FiO2 28 03/18/24 07:16 Allergies Allergy/AdvReac Type Severity Reaction Status Date / Time No Known Allergies Allergy Verified 03/20/24 06:49 Home Medications Medication Instructions Recorded Confirmed Type aspirin 81 mg tablet,delayed 81 mg PO DAILY 05/02/23 03/15/24 History release hydrochlorothiazide 25 mg tablet 25 mg PO DAILY #30 tabs 07/13/23 03/15/24 Rx meloxicam 7.5 mg tablet 7.5 mg PO DAILY #90 tabs 07/13/23 03/15/24 Rx albuterol sulfate 90 mcg/actuation 2 puff inhalation Q4H PRN 12/19/23 03/15/24 Rx aerosol inhaler shortness of breath or wheezing #25.5 grams budesonide 160 mcg-glycopyr 9 2 inh inhalation BID #10.7 grams 02/13/24 03/15/24 Rx mcg-formot 4.8 mcg/actuation HFA inhaler (Breztri Aerosphere) simvastatin 40 mg tablet 40 mg PO DAILY #100 tabs 02/13/24 03/15/24 Rx metformin 500 mg tablet,extended 500 mg PO BID #200 tabs 03/09/24 03/15/24 Rx release 24 hr furosemide 20 mg tablet 20 mg PO QAM 03/15/24 03/15/24 History ipratropium bromide 42 mcg (0.06 2 spray intranasal QID 03/15/24 03/15/24 History %) nasal spray terazosin 5 mg capsule 5 mg PO BID 03/15/24 03/15/24 History Laboratory Tests 03/19/24 03/19/24 03/19/24 08:08 12:40 16:54 WBC RBC Hgb Hct MCV MCH MCHC RDW Plt Count MPV Immature Gran % (Auto) Neut % (Auto) Lymph % (Auto) Summit % (Auto) Eos % (Auto) Baso % (Auto) Lymph # (Auto) [place] # (Auto) Eos # (Auto) Baso # (Auto) Abs Immat Gran (auto) Absolute Neuts (auto) Absolute Nucleated RBC Nucleated RBC % Sodium Potassium Chloride Carbon Dioxide Anion Gap BUN Creatinine Estim Creat Clear Calc Estimated GFR Glucose POC Capillary Glucose 124 H mg/dl 228 H mg/dl 115 H mg/dl (65-105) (65-105) (65-105) Calcium Magnesium Total Bilirubin AST ALT Alkaline Phosphatase Total Protein Albumin 03/19/24 03/20/24 03/20/24 20:00 05:06 06:46 WBC 5.6 K/mm3 (4.5-10.0) RBC 2.74 L M/mm3 (4.6-6.20) Hgb 8.7 L g/dL (14.0-18.0) Hct 27.6 L % (42.0-52.0) MCV 100.7 H fl (80-100) MCH 31.8 pg (26-34) MCHC 31.5 L g/dl (32-36) RDW 13.7 % (11.5-14.5) Plt Count 258 k/mm3 (150-375) MPV 9.0 fl (7.4-10.4) Immature Gran % (Auto) 1.1 H % (0-0.5) Neut % (Auto) 59.6 % (45.5-73.1) Lymph % (Auto) 24.8 % (18.3-44.2) Summit % (Auto) 9.9 H % (2.6-8.5) Eos % (Auto) 4.1 % (0-4.4) Baso % (Auto) 0.5 % (0.2-1.2) Lymph # (Auto) 1.38 K/mm3 (0.9-3.2) Summit # (Auto) 0.6 K/mm3 (0.1-0.6) Eos # (Auto) 0.2 K/mm3 (0-0.3) Baso # (Auto) 0.0 K/mm3 (0.0-0.1) Abs Immat Gran (auto) 0.06 H K/mm3 (0.00-0.031) Absolute Neuts (auto) 3.3 K/mm3 (1.3-6.7) Absolute Nu
--- NOTE | 2024-03-20 07:49 | PM.IMPN ---
Progress Note: A&P Assessment and Plan (1) Acute hyponatremia: Code(s): E87.1 - Hypo-osmolality and hyponatremia Status: Acute (2) Urinary retention: Code(s): R33.9 - Retention of urine, unspecified Status: Acute (3) COPD (chronic obstructive pulmonary disease): Qualifiers: COPD type: unspecified COPD Qualified Code(s): J44.9 - Chronic obstructive pulmonary disease, unspecified Code(s): J44.9 - Chronic obstructive pulmonary disease, unspecified Status: Chronic Plan Acute hyponatremia: ?Code(s): E87.1 - Hypo-osmolality and hyponatremia ?Status:?Acute Likely secondary to use of diuretics, patient is on Lasix and HCTZ and dehydration discontinue Lasix? and HCTZ today repeat lab showed today hyponatremia 128, chloride 91 And sodium chloride 2 g b.i.d. p.o. Follow-up BMP sodium 132 chloride 98, continue hold water pills, change sodium chloride 1 g t.i.d. p.o. 03/19 Na 133 today the blood pressure on the lower side, elevated BUN creatinine ratio Start normal saline IV 100 mL/hour blood pressure stable but soft, continue normal saline IV 03/18 blood pressure stable, dc normal saline 100 mL/hour, Metabolic Alkalosis Likely secondary to Lasix hold Lasix Follow ABG this shows decompensated metabolic alkalosis, possible secondary to diuretic medication sodium bicarbonate is a trending down to 32 6/ abnormal CT finding Focal narrowing and wall thickening in the mid sigmoid colon, no surrounding inflammatory change to suggest active diverticulitis. Possible fecal impaction with adjacent wall thickening as can be seen with early stercoral colitis. Possible anorectal mass. Consider referral for endoscopy to evaluate the anorectal findings and the mid sigmoid narrowing. consult GI, colonoscopy done, unremarkable Urinary retention: ?Code(s): R33.9 - Retention of urine, unspecified ?Status:?Acute ?Assessment and Plan: 03/15/24: Bladder scan showing greater than 490 mL of urine in the bladder Patient has history of BPH on terazosin Stephens catheter placed Urology consulted Urology following Continue Terazosi stephens catheter is removed at discharge Acute hypokalemia: hold diuretic medication, replete with potassium chloride Continue cardiac monitoring corrected Elevated liver enzymes: ?Code(s): R74.8 - Abnormal levels of other serum enzymes ?Status:?Acute ?Assessment and Plan: 03/15/24: suspect shocked liver due to pre-renal azotemia due to overuse of diuretics AST 270, ALT 79 on admission Total bili normal Today liver enzymes are trending down, AST 221, ALT 82 Continue to trend. 03/16/24: AST 99, ALT 58 Continue to trend wnl (7) Generalized weakness: ?Code(s): R53.1 - Weakness ? ? and fall Continue fall precautions PT and OT ordered Head CT negative for any acute intracranial process C-spine CT negative for any acute fracture or malalignment Left elbow x-ray shown small joint effusion Bilateral hip and pelvis x-ray was negative for any acute findings Bilateral knee x-ray shown irregularity of the left patellar tendon Can benefit from SNF placement Case management following for discharge needs (8) COPD (chronic obstructive pulmonary disease): ?Qualifiers: ?COPD type:?unspecified COPD? Qualified Code(s):?J44.9 - Chronic obstructive pulmonary disease, unspecified ?Code(s): J44.9 - Chronic obstructive pulmonary disease, unspecified ?Status:?Chronic ?Assessment and Plan: CXR- shown subsegmental and linear left basilar atelectasis/consolidation, possible small left pleural effusion Continue Albuterol inhaler PRN for SOB/wheezing Currently on 2L NC which is patient's baseline O2 needs No change to current treatment plan Type 2 diabetes mellitus with hyperglycemia ?Status:?Chronic ?Assessment and Plan: Blood sugars ranging 168-180
--- NOTE | 2024-03-20 07:51 | PM.DS ---
DS: Admitting Diagnosis Discharge Date 03/20 Admitting Diagnosis (1) Acute hyponatremia: Code(s): E87.1 - Hypo-osmolality and hyponatremia Status: Acute (2) Urinary retention: Code(s): R33.9 - Retention of urine, unspecified Status: Acute (3) COPD (chronic obstructive pulmonary disease): Qualifiers: COPD type: unspecified COPD Qualified Code(s): J44.9 - Chronic obstructive pulmonary disease, unspecified Code(s): J44.9 - Chronic obstructive pulmonary disease, unspecified Status: Chronic DS: Discharge Diagnosis Discharge Diagnosis (1) Acute hyponatremia: Code(s): E87.1 - Hypo-osmolality and hyponatremia Status: Acute (2) Urinary retention: Code(s): R33.9 - Retention of urine, unspecified Status: Acute (3) COPD (chronic obstructive pulmonary disease): Qualifiers: COPD type: unspecified COPD Qualified Code(s): J44.9 - Chronic obstructive pulmonary disease, unspecified Code(s): J44.9 - Chronic obstructive pulmonary disease, unspecified Status: Chronic DS: Summary Hospital Course Hospital Course: This is an 83-year-old male with past medical history significant for COPD/ emphysema, chronic hypoxic respiratory failure on supplemental oxygen by nasal cannula at home, type diabetes mellitus, hypertension, peripheral vascular disease. patient was brought to the emergency room after his son found him down, no loss of consciousness, patient has been having recurrent falls, poor appetite, generalized weakness. Preliminary workup here was significant for sodium 126, chloride 79, potassium 2.4, BUN 67, creatinine 1.4. Patient is been admitted for further evaluation management and treatment. the following med issues have been addressed during hospitalization Acute hyponatremia: ?Code(s): E87.1 - Hypo-osmolality and hyponatremia ?Status:?Acute Likely secondary to use of diuretics, patient is on Lasix and HCTZ and dehydration discontinue Lasix? and HCTZ today repeat lab showed today hyponatremia 128, chloride 91 And sodium chloride 2 g b.i.d. p.o. Follow-up BMP sodium 132 chloride 98, continue hold water pills, change sodium chloride 1 g t.i.d. p.o. 03/19 Na 133 today continue to hole lasix and HCTZ on discharge, may resume per PCP under evaluation in office the blood pressure on the lower side, elevated BUN creatinine ratio Start normal saline IV 100 mL/hour blood pressure stable but soft, continue normal saline IV 6/2 blood pressure stable, dc normal saline 100 mL/hour, Metabolic Alkalosis Likely secondary to Lasix hold Lasix Follow ABG this shows decompensated metabolic alkalosis, possible secondary to diuretic medication sodium bicarbonate is a trending down to 32 6/[address] finding Focal narrowing and wall thickening in the mid sigmoid colon, no surrounding inflammatory change to suggest active diverticulitis. Possible fecal impaction with adjacent wall thickening as can be seen with early stercoral colitis. Possible anorectal mass. Consider referral for endoscopy to evaluate the anorectal findings and the mid sigmoid narrowing. consult GI, colonoscopy done, unremarkable Urinary retention: ?Code(s): R33.9 - Retention of urine, unspecified ?Status:?Acute ?Assessment and Plan: 03/15/24: Bladder scan showing greater than 490 mL of urine in the bladder Patient has history of BPH on terazosin Stephens catheter placed Urology consulted Urology following Continue Terazosi stephens catheter is removed at discharge Acute hypokalemia: hold diuretic medication, replete with potassium chloride Continue cardiac monitoring corrected Elevated liver enzymes: ?Code(s): R74.8 - Abnormal levels of other serum enzymes ?Status:?Acute ?Assessment and Plan: 03/15/24: suspect shocked liver due to pre-renal azotemia due to overuse of diuretics AST 270
[2024-03-20] MEDS: FLUTICASONE/UMECLIDIN/VILANTER 100-62.5-25 MCG ELLIPTA 1 PUFF INHALATION (08:49)
--- NOTE | 2024-03-20 09:31 | WPDUROPN2 ---
Progress Note: A&P Assessment and Plan (1) Urinary retention: Code(s): R33.9 - Retention of urine, unspecified Status: Acute Assessment and Plan: Pelvic CT shows distended bladder and bladder scan demonstrated >490 cc. This is likely due to fecal impaction. Jackson catheter placed on 03/15/2024. Continue home terazosin. Will remove Jackson catheter today as fecal impaction appears to have resolved. Check PVR after first void (2) Fecal impaction: Code(s): K56.41 - Fecal impaction Status: Acute Assessment and Plan: Noted on pelvis CT along with masslike soft tissue density at distal rectum/anus. Has been evaluated by GI and underwent colonoscopy. Fecal impaction appears to have resolved, therefore will proceed with void trial as above (3) BPH (benign prostatic hyperplasia): Qualifiers: Lower urinary tract symptom presence: symptoms absent Qualified Code(s): N40.0 - Benign prostatic hyperplasia without lower urinary tract symptoms Code(s): N40.0 - Benign prostatic hyperplasia without lower urinary tract symptoms Status: Chronic Assessment and Plan: Chronic issue maintained on terazosin for many years. Recommend outpatient follow-up after hospital discharge for continue management (4) Acute kidney injury: Code(s): N17.9 - Acute kidney failure, unspecified Status: Acute Assessment and Plan: Creatinine elevated to 1.4 on admission. Likely multifactorial, in part due to urinary retention. MAYELA reviewed with no hydro. Creatinine improved to 0.9 today Subjective Subjective Date/Time Seen: 03/20/24 09:31 Interval history: John is doing well today. Offers no complaints. Denies abdominal pain, suprapubic pain, nausea, vomiting, fever, chills. Tolerating his Jackson without difficulty Review of Systems Review of Systems: All systems reviewed & are unremarkable except as noted in HPI and below Exam Narrative: General: Awake, alert, no acute distress HEENT: Normocephalic, atraumatic, sclerae anicteric Respiratory: Normal respiratory effort, no accessory muscle use Abdomen: Nondistended, soft, nontender : Jackson catheter draining clear yellow urine Skin: Normal coloration, warm and dry Neurologic: No focal neuro deficits noted Psychiatric: Appropriate mood and affect, judgment and insight intact Objective Data Vital Signs Vital Signs: Vital Signs - 24 hr 03/19/24 12:00 03/19/24 14:48 03/19/24 16:00 Temperature 98.1 F Pulse Rate 72 72 81 Respiratory Rate 20 Blood Pressure 101/57 L Pulse Oximetry 98 Oxygen Delivery Oxygen Flow Rate Fraction of Inspired Oxygen 03/19/24 19:54 03/19/24 20:09 03/19/24 20:00 Temperature 98.2 F Pulse Rate 77 77 Respiratory Rate 18 Blood Pressure 119/60 Pulse Oximetry 97 98 Oxygen Delivery Nasal Cannula Oxygen Flow Rate 2 Fraction of Inspired Oxygen 03/20/24 00:00 03/20/24 04:00 03/20/24 04:24 Temperature 97.2 F L Pulse Rate 64 80 78 Respiratory Rate 18 Blood Pressure 105/52 L Pulse Oximetry 100 Oxygen Delivery Oxygen Flow Rate Fraction of Inspired Oxygen 03/20/24 06:50 03/20/24 07:43 03/20/24 07:48 Temperature 96.8 F L Pulse Rate 74 71 Respiratory Rate 19 21 H Blood Pressure 112/54 L 75/41 L 91/49 L Pulse Oximetry 100 98 Oxygen Delivery Nasal Cannula Nasal Cannula Oxygen Flow Rate 2 2 Fraction of Inspired Oxygen 03/20/24 07:53 03/20/24 08:00 03/20/24 08:03 Temperature Pulse Rate 73 72 Respiratory Rate 20 19 Blood Pressure 91/56 L 94/59 L 105/61 Pulse Oximetry 96 98 Oxygen Delivery Nasal Cannula Nasal Cannula Oxygen Flow Rate 2 2 Fraction of Inspired Oxygen 03/20/24 08:31 03/20/24 08:49 03/20/24 08:49 Temperature 98.2 F Pulse Rate 72 73 Respiratory Rate 18 20 Blood Pressure 104/58 L Pulse Oximetry 97 96 Oxygen Delivery Nasal Cannula Oxygen Flow Rate 2
[2024-03-20] MEDS: TERAZOSIN HCL 5 MG CAPSULE PO ×2 (09:36→17:29)
[2024-03-20] MEDS: SIMVASTATIN 20 MG TABLET 40 MG PO (09:37)
[2024-03-20] MEDS: SODIUM CHLORIDE 1 GM TABLET PO ×3 (09:37→17:29)
[2024-03-20] MEDS: ASPIRIN 81 MG ENTERIC TABLET PO (09:38)
[2024-03-20] MEDS: ENOXAPARIN 40 MG/0.4 ML SYRINGE SUB-Q (09:38)
[2024-03-20] MEDS: POTASSIUM CHLORIDE 20 MEQ PACKET (FOR LIQUID) PO ×2 (09:39→17:30)
[2024-03-20] MEDS: LACTULOSE 20 GM/30 ML UDC PO ×2 (09:39→17:29)
[2024-03-20] MEDS: NICOTINE (*PBKC) 21 MG PATCH 1 PATCH TRANSDERM (09:40)
[2024-03-20] MEDS: IPRATROPIUM NASAL SPRAY 0.06% 15 ML BOTTLE 2 SPRAY NASAL ×4 (09:41→20:25)
[2024-03-20] MEDS: DICLOFENAC SODIUM 1% 100 GM GEL (*BKC) 1 APPLIC TOPICAL ×4 (09:44→20:25)
--- NOTE | 2024-03-20 12:15 | PCNFU ---
Nutrition Follow-Up Complete: Suboptimal intake as related to pain as evidenced by poor po intake reported. Goal: Adequate Intake of at least 75% of meals/supplements Pt current nutrition is consistent carbohydrate and high fiber diet. Nutrition recommendation: Continue with consistent carbohydrate/high fiber diet with Ensure Compact BID. Monitor need for fluid restriction. Check weight. Last recorded weight is 89.4 kg. No recent weights. Bowel Motility: BM - 03/20. Abd soft. Labs Reviewed: Na 133, glucose 116 Meds Noted: KCl, MiraLAX, Mylanta, Novolog, Lactulose, Zofran Skin: no pressure ulcers noted Additional Notes: Patient denies n/v/c. Looser stools 2/2 Lactulose. Patient had been on clear liquids but diet advanced this morning. Previous intakes: 25-75% of meals. RD will monitor weight, labs, skin, oral intake, meds every 5 days.
[2024-03-20 12:25] LABS: Glucose Point of Care 173 mg/dl (65-105)
[2024-03-20 16:32] LABS: SARS-CoV-2 RNA PCR Negative (Negative)
[2024-03-20 17:00] LABS: Glucose Point of Care 252 mg/dl (65-105)
[2024-03-20] MEDS: INSULIN ASPART (*BKC) 100 UNITS/ML SUB-Q (17:29)
--- NOTE | 2024-03-20 19:22 | PC.NURSE ---
RN attempted to give report to receiving facility three times. Left messages with facility twice with no response. Nightshift RN aware.
[2024-03-20 21:02] LABS: Glucose Point of Care 128 mg/dl (65-105)
== END 2024-03-20 20:50 | DRG 683 ==
LOC: ANHED 03-15 02:07 → ANH2MED 03-15 02:31
PROVIDERS: Internal Medicine Gastroenterology; Nurse Practitioner Acute Care; Admitting Provider Internal Medicine; Emergency Provider Emergency Medicine; PCP Family Medicine; Visit Provider Hospitalist
PROC: 0DJD8ZZ Inspection of Lower Intestinal Tract, Via Natural or Artificial Opening Endoscopic (ICD-10-PCS; CPT 45378; principal; 2024-03-20 07:30)
DX: N17.9 Acute kidney failure, unspecified (principal); E87.1 Hypo-osmolality and hyponatremia; J96.11 Chronic respiratory failure with hypoxia; E87.3 Alkalosis; J44.9 Chronic obstructive pulmonary disease, unspecified; I10 Essential (primary) hypertension; E87.6 Hypokalemia; E11.51 Type 2 diabetes mellitus with diabetic peripheral angiopathy without gangrene; E11.65 Type 2 diabetes mellitus with hyperglycemia; K57.30 Diverticulosis of large intestine without perforation or abscess without bleeding; K56.41 Fecal impaction; K64.4 Residual hemorrhoidal skin tags; K63.5 Polyp of colon; N40.0 Benign prostatic hyperplasia without lower urinary tract symptoms; M54.2 Cervicalgia; M25.552 Pain in left hip; M25.551 Pain in right hip; M25.422 Effusion, left elbow; M19.90 Unspecified osteoarthritis, unspecified site; R33.9 Retention of urine, unspecified; R53.1 Weakness; R74.8 Abnormal levels of other serum enzymes; Z20.822 Contact with and (suspected) exposure to COVID-19; F17.210 Nicotine dependence, cigarettes, uncomplicated; Z95.5 Presence of coronary angioplasty implant and graft; Z79.82 Long term (current) use of aspirin; Z99.81 Dependence on supplemental oxygen
CPT/HCPCS: 36415; 36600; 70450; 71045; 72125; 72192; 73080; 73521; 73562; 74018; 76775; 80053; 80061; 81001; 82533; 82805; 82948; 83605; 83735; 83930; 83935; 84132; 84295; 84300; 84443; 85025; 85610; 85730; 87635; 88305; 93005; 94640; 96361; 96365; 96372; 96376; 97110; 97161; 97166; 97530; 97535; 99285; A4565; A9270; G0378; J1650; J1815; J2405; J2704; J3480; J7030; J7040; J7120

== ENCOUNTER → 2024-07-31 15:46 | Outpatient (REF) | payer MEDICARE, SELFPAY | LOC: ANHLAB 15:46 | PROVIDERS: PCP Family Medicine; Visit Provider Plastic Surgery | DX: C44.329 Squamous cell carcinoma of skin of other parts of face (principal) | CPT/HCPCS: 88305 ==